=== PATIENT | female | born 1975 | race Caucasian/White ===

== ENCOUNTER 2017-05-12 22:06 | Emergency (ER) | payer SELFPAY ==
[~2017-05-12] VITALS: Ht 162.6 cm; Wt 90.7 kg
[~2017-05-12 22:06] MED LIST changes: -ALPR0.5T7; -CITA20TA7; -HYDR-3816; -NAPR500T4; -ONDA4TAB11 PO; -SULF1TAB35 PO
--- OUTSIDE RECORDS SUMMARY | 2017-05-12 22:11 | XMS REPORT ---
Author Author PATRICE ELIAS [facility] eClinicalWorks Address Unknown Phone Unavailable Care Team Providers Care Hot Mill Observer Name Role Phone PATRICE ELIAS CP Unavailable Allergies No Known Allergies Problems Problem Type Condition Code Onset Dates Condition Status Problem Obesity (BMI 30-39.9) E66.9 Active Problem Lumbago with sciatica, unspecified side M54.40 Active Problem Arthritis M19.90 Active Assessment Anxiety F41.9 Active Problem Anxiety F41.9 Active Assessment Lumbago with sciatica, unspecified side M54.40 Active Medications Medication Code System Code Instructions Start Date End Date Status Dosage Hydrocodone-Acetaminophen [facility] [address]-17 10-325 MG Orally every 4 hours 1 tablet as needed Alprazolam [facility] [address]-84 1 MG Orally 4 times a day 1 tablet Results No Known Results Summary Purpose eClinicalWorks Submission
--- OUTSIDE RECORDS SUMMARY | 2017-05-12 22:11 | XMS REPORT ---
Author Author PATRICE ELIAS Organization eClinicalWorks Address Unknown Phone Unavailable Care Team Providers Care Lecturer In Marketing Name Role Phone PATRICE ELIAS CP Unavailable Allergies, Adverse Reactions, Alerts Substance Reaction Event Type Penicillin V Potassium Info Not Available Drug Allergy codiene Info Not Available Non Drug Allergy Problems Problem Type Condition Code Onset Dates Condition Status Problem Obesity (BMI 30-39.9) E66.9 Active Problem Lumbago with sciatica, unspecified side M54.40 Active Problem Arthritis M19.90 Active Assessment Obesity (BMI 30-39.9) E66.9 Active Assessment Lumbago with sciatica, unspecified side M54.40 Active Problem Anxiety F41.9 Active Assessment Arthritis M19.90 Active Medications Medication Code System Code Instructions Start Date End Date Status Dosage Hydrocodone-Acetaminophen [facility] [address]-66 10-325 MG Orally every 4 hours 1 tablet as needed Contrave [facility] [address]-19 8-90 MG Orally as directed Mar 18, 2016Jun 1 AM 1 wk, 1 bid 1wk, 2AM 1PM 1wk, then 2bid Cyclobenzaprine HCl [facility] [address]-51 10 MG Orally Three times a day 1 tablet Diclofenac Sodium [facility] [address]-36 75 MG Orally Twice a day,pc Mar 18, 2016 1 Citalopram Hydrobromide [facility] [address]-87 20 MG Orally Once a day 1 tablet Alprazolam [facility] [address]-42 1 MG Orally 4 times a day 1 tablet Procedures Procedure Coding System Code Date Office Visit, Est Pt., Level 3 CPT-4 67551 Mar 18, 2016 Vital Signs Date/Time: Mar 18, 2016 Cardiac Monitoring Heart Rate 80 bpm Weight 228.3 lbs Height 64 in BMI 39.18 Index Blood Pressure Diastolic 84 mmHg Blood Pressure Systolic 128 mmHg Results No Known Results Summary Purpose eClinicalWorks Submission
--- OUTSIDE RECORDS SUMMARY | 2017-05-12 22:11 | XMS REPORT ---
Author Author PATRICE ELIAS [facility] Address [address] [place] [address] Care Team Providers Care Transport Specialist Name Role Phone PATRICE ELIAS Unavailable PROBLEMS Type Condition ICD9-CM Code [id number] Code Onset Dates Condition Status SNOMED Code Problem Lumbago with sciatica, unspecified side M54.40 Active 908597479 Problem Anxiety F41.9 Active 34997450 Assessment Lumbago with sciatica, unspecified side M54.40 Dec, Active 834632585 Assessment Other chronic pain G89.29 Dec, Active 44630719 ALLERGIES Substance Reaction Event Type Date Status Penicillin V Potassium Unknown Drug Allergy Dec, Active codiene Unknown Non Drug Allergy Dec, Active SOCIAL HISTORY No smoking Hx information available PLAN OF CARE VITAL SIGNS Height 64 in 2016-01-11 Weight 231.9 lbs 2016-01-11 Heart Rate 84 bpm 2016-01-11 Respiratory Rate 18 2016-01-11 BMI 39.80 kg/m2 2016-01-11 Blood pressure systolic 128 mmHg 2016-01-11 Blood pressure diastolic 94 mmHg 2016-01-11 MEDICATIONS Medication Instructions Dosage Frequency Start Date End Date Duration Status Alprazolam 1 MG Orally 4 times a day 6h Active Hydrocodone-Acetaminophen 10-325 MG Orally every 4 hours 1 tablet as needed 4h Active Citalopram Hydrobromide 20 MG Orally Once a day 1 tablet 24h Active Cyclobenzaprine HCl 10 MG Orally Three times a day 1 tablet 8h Active RESULTS No Results PROCEDURES Procedure Date Ordered Related Diagnosis Body Site Office Visit, Est Pt., Level 3 January 11, 2016 IMMUNIZATIONS No Known Immunizations
--- OUTSIDE RECORDS SUMMARY | 2017-05-12 22:11 | XMS REPORT ---
Author Author PATRICE ELIAS [facility] Address [address] [place] [address] Care Team Providers Care Vat House Supervisor Name Role Phone PATRICE ELIAS Unavailable PROBLEMS Type Condition ICD9-CM Code [id number] Code Onset Dates Condition Status SNOMED Code Problem Arthritis M19.90 Active 5172259 Problem Obesity (BMI 30-39.9) E66.9 Active 076090363 Problem Lumbago with sciatica, unspecified side M54.40 Active 702779134 Problem Anxiety F41.9 Active 33003113 ALLERGIES No Known Allergies SOCIAL HISTORY No smoking Hx information available PLAN OF CARE VITAL SIGNS MEDICATIONS Medication Instructions Dosage Frequency Start Date End Date Duration Status Hydrocodone-Acetaminophen 10-325 MG Orally every 4 hours 1 tablet as needed 4h Active Alprazolam 1 MG Orally 4 times a day 1 tablet 6h Active RESULTS No Results PROCEDURES No Known procedures IMMUNIZATIONS No Known Immunizations
--- OUTSIDE RECORDS SUMMARY | 2017-05-12 22:12 | XMS REPORT ---
Author Author PATRICE ELIAS [facility] Address [address] [place] [address] Care Team Providers Care Biological Science Technician Name Role Phone PATRICE ELIAS Unavailable PROBLEMS Type Condition ICD9-CM Code [id number] Code Onset Dates Condition Status SNOMED Code Problem Lumbago with sciatica, unspecified side M54.40 Active 539770419 Problem Anxiety F41.9 Active 70351309 Problem Family history of heart disease Z82.49 Active 796778625 Problem Seasonal allergic rhinitis, unspecified allergic rhinitis trigger J30.2 Active 352982627 Problem Arthritis M19.90 Active 8443956 Problem Obesity (BMI 30-39.9) E66.9 Active 830766739 Problem 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
--- OUTSIDE RECORDS SUMMARY | 2017-05-12 22:12 | XMS REPORT ---
Author Author NICOLETTE MCKNIGHT [facility] eClinicalWorks Address Unknown Phone Unavailable Care Team Providers Care Import Clerk Name Role Phone NICOLETTE MCKNIGHT CP Unavailable Allergies, Adverse Reactions, Alerts Substance Reaction Event Type Penicillin V Potassium Info Not Available Drug Allergy codiene Info Not Available Non Drug Allergy Problems Problem Type Condition Code Onset Dates Condition Status Problem Anxiety F41.9 Active Assessment Rib pain on left side R07.81 Active Problem Lumbago with sciatica, unspecified side M54.40 Active Medications Medication Code System Code Instructions Start Date End Date Status Dosage Citalopram Hydrobromide [facility] [address]-79 20 MG Orally Once a day 1 tablet Hydrocodone-Acetaminophen [facility] [address]-82 10-325 MG Orally every 4 hours 1 tablet as needed Alprazolam [facility] [address]-92 1 MG Orally 4 times a day 1 tablet Cyclobenzaprine HCl [facility] [address]-93 10 MG Orally Three times a day 1 tablet Procedures Procedure Coding System Code Date Office Visit, Est Pt., Level 3 CPT-4 75662 Feb 06, 2016 Vital Signs Date/Time: Feb 06, 2016 Cardiac Monitoring Heart Rate 76 bpm Weight 229.4 lbs Height 64 in BMI 39.37 Index Blood Pressure Diastolic 82 mmHg Blood Pressure Systolic 130 mmHg Results No Known Results Summary Purpose eClinicalWorks Submission
--- OUTSIDE RECORDS SUMMARY | 2017-05-12 22:12 | XMS REPORT ---
Author Author HAYLIE HERNANDEZ [facility] Address [address] [place] [address] Care Team Providers Care Ski Molder Name Role Phone HAYLIE HERNANDEZ Unavailable PROBLEMS Type Condition ICD9-CM Code LIM74-PA Code Onset Dates Condition Status SNOMED Code Problem Arthritis M19.90 Active 4170370 Problem Obesity (BMI 30-39.9) E66.9 Active 362758887 Assessment Laceration of finger of right hand, initial encounter S61.219A Feb, Active 229539030 Problem Lumbago with sciatica, unspecified side M54.40 Active 498742115 Problem Anxiety F41.9 Active 73863115 ALLERGIES Substance Reaction Event Type Date Status Penicillin V Potassium Unknown Drug Allergy Feb, Active codiene Unknown Non Drug Allergy Feb, Active SOCIAL HISTORY No smoking Hx information available PLAN OF CARE VITAL SIGNS Height 64 in 2016-03-02 Weight 226.0 lbs 2016-03-02 Heart Rate 78 bpm 2016-03-02 Respiratory Rate 18 2016-03-02 BMI 38.79 kg/m2 2016-03-02 Blood pressure systolic 128 mmHg 2016-03-02 Blood pressure diastolic 86 mmHg 2016-03-02 MEDICATIONS Medication Instructions Dosage Frequency Start Date End Date Duration Status Hydrocodone-Acetaminophen 10-325 MG Orally every 4 hours 1 tablet as needed 4h Active Cyclobenzaprine HCl 10 MG Orally Three times a day 1 tablet 8h Active Citalopram Hydrobromide 20 MG Orally Once a day 1 tablet 24h Active Alprazolam 1 MG Orally 4 times a day 1 tablet 6h Active RESULTS No Results PROCEDURES Procedure Date Ordered Related Diagnosis Body Site Office Visit, Est Pt., Level 3 Mar 02, 2016 IMMUNIZATIONS No Known Immunizations
--- OUTSIDE RECORDS SUMMARY | 2017-05-12 22:12 | XMS REPORT ---
Author Author PATRICE ELIAS [facility] eClinicalWorks Address Unknown Phone Unavailable Care Team Providers Care Consumer Recruiter Name Role Phone PATRICE ELIAS CP Unavailable Allergies No Known Allergies Problems Problem Type Condition Code Onset Dates Condition Status Problem Anxiety F41.9 Active Problem Lumbago with sciatica, unspecified side M54.40 Active Medications Medication Code System Code Instructions Start Date End Date Status Dosage Alprazolam [facility] [address]-37 1 MG Orally 4 times a day 1 tablet Hydrocodone-Acetaminophen [facility] [address]-19 10-325 MG Orally every 4 hours 1 tablet as needed Results No Known Results Summary Purpose eClinicalWorks Submission
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
--- OUTSIDE RECORDS SUMMARY | 2017-05-12 22:12 | XMS REPORT ---
Author Author PATRICE ELIAS Organization eClinicalWorks Address Unknown Phone Unavailable Care Team Providers Care Quality Control Director Name Role Phone PATRICE ELIAS CP Unavailable Allergies No Known Allergies Problems Problem Type Condition Code Onset Dates Condition Status Problem Obesity (BMI 30-39.9) E66.9 Active Problem Lumbago with sciatica, unspecified side M54.40 Active Problem Arthritis M19.90 Active Problem Anxiety F41.9 Active Medications Medication Code System Code Instructions Start Date End Date Status Dosage Hydrocodone-Acetaminophen [facility] [address]-53 10-325 MG Orally every 4 hours 1 tablet as needed Results No Known Results Summary Purpose eClinicalWorks Submission
--- OUTSIDE RECORDS SUMMARY | 2017-05-12 22:12 | XMS REPORT ---
Author Author PATRICE ELIAS Organization eClinicalWorks Address Unknown Phone Unavailable Care Team Providers Care Bagger Meat Name Role Phone PATRICE ELIAS CP Unavailable Allergies No Known Allergies Problems Problem Type Condition Code Onset Dates Condition Status Problem Obesity (BMI 30-39.9) E66.9 Active Problem Lumbago with sciatica, unspecified side M54.40 Active Problem Arthritis M19.90 Active Problem Anxiety F41.9 Active Medications Medication Code System Code Instructions Start Date End Date Status Dosage Citalopram Hydrobromide [facility] [address]-50 20 mg Orally Once a day 1 tablet Alprazolam [facility] [address]-81 1 MG Orally 4 times a day 1 tablet Results No Known Results Summary Purpose eClinicalWorks Submission
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
--- OUTSIDE RECORDS SUMMARY | 2017-05-12 22:12 | XMS REPORT ---
Author Author PATRICE ELIAS [facility] Address [address] [place] [address] Care Team Providers Care Paint Maker Name Role Phone PATRICE ELIAS Unavailable PROBLEMS Type Condition ICD9-CM Code [id number] Code Onset Dates Condition Status SNOMED Code Problem Lumbago with sciatica, unspecified side M54.40 Active 517178676 Problem Anxiety F41.9 Active 78894315 Problem Family history of heart disease Z82.49 Active 757713227 Problem Seasonal allergic rhinitis, unspecified allergic rhinitis trigger J30.2 Active 270638116 Problem Arthritis M19.90 Active 5114436 Problem Obesity (BMI 30-39.9) E66.9 Active 161456788 Problem Functional 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
--- OUTSIDE RECORDS SUMMARY | 2017-05-12 22:12 | XMS REPORT ---
Author Author PATRICE ELIAS [facility] eClinicalWorks Address Unknown Phone Unavailable Care Team Providers Care Section Chief Name Role Phone PATRICE ELIAS CP Unavailable Allergies No Known Allergies Problems Problem Type Condition Code Onset Dates Condition Status Problem Anxiety F41.9 Active Problem Lumbago with sciatica, unspecified side M54.40 Active Medications Medication Code System Code Instructions Start Date End Date Status Dosage Alprazolam [facility] [address]-30 1 MG Orally 4 times a day 1 tablet Hydrocodone-Acetaminophen [facility] [address]-03 10-325 MG Orally every 4 hours 1 tablet as needed Results No Known Results Summary Purpose eClinicalWorks Submission
--- OUTSIDE RECORDS SUMMARY | 2017-05-12 22:12 | XMS REPORT ---
Author Author JAD FONTENOT Organization [facility] Address [address] [place] [address] Care Team Providers Care Rip And Groove Machine Operator Name Role Phone JAD FONTENOT Unavailable PROBLEMS Type Condition ICD9-CM Code EWS03-BV Code Onset Dates Condition Status SNOMED Code Problem Lumbago with sciatica, unspecified side M54.40 Active 690752682 Problem Anxiety F41.9 Active 79541875 Problem Family history of heart disease Z82.49 Active 232409631 Problem Seasonal allergic rhinitis, unspecified allergic rhinitis trigger J30.2 Active 251436298 Problem Arthritis M19.90 Active 0374746 Problem Obesity (BMI 30-39.9) E66.9 Active 224574305 Problem Functional 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
[2017-05-12] MEDS ORDERED: ALPR0.5T7 (22:16)
[2017-05-12] MEDS ORDERED: HYDR-3816 (22:16)
[2017-05-12] MEDS ORDERED: CITA20TA7 (22:16)
[2017-05-12] MEDS ORDERED: NAPR500T4 (22:16)
[2017-05-12] MEDS ORDERED: NS IV 1000 ML 1,000 ML IV ONE (22:17)
--- NOTE | 2017-05-12 22:25 | ED Abdominal Pain ---
General Chief Complaint: Abdominal/GI Problems Stated Complaint: L SIDE PAIN Source of Information: Patient, Family (mother and daughter) Exam Limitations: No Limitations History of Present Illness Time Seen By Provider: 22:13 Initial Comments Patient presents to ER by private conveyance with chief complaint that she is having now going on 2 days of left upper quadrant abdominal pain that radiates all over her abdomen. It is made worse by being touched, movement, nausea and vomiting. She gets nauseated when the pain gets worse or after she tries to eat anything. She has had loose stools ever since she had her gallbladder removed and this is not changed. She sees no blood in her vomit or diarrhea. She also has had her appendix out. She does not know she has a history of diverticulosis. No recent trauma to the abdomen. No history of recent travel outside the [place]. She is also had a on her abdomen. She says she is perimenopausal very irregular periods and hot flashes. She denies any fevers, cough, shortness of breath, chest pain, coronary artery disease by history. She takes citalopram and an NSAID as needed. She quit smoking years ago does not drink alcohol has no history of pancreatitis and no history of hypercholesterolemia. She says she feels a knot in her left upper quadrant started yesterday and that is the source of her pain. She went to her clinic at [facility] this evening to be worked up for this pain and says that took 5 x-rays of her abdomen so they saw spot in her left upper abdomen that they did not like the looks of. They sent her from the clinic to the ER to be evaluated. We did not receive any other contact or paperwork from the clinic revealing what workup has been done tonight. Allergies and Home Medications Allergies Coded Allergies: Codeine (Unverified Allergy, Mild, 12/10/08) Penicillins (Unverified Allergy, Mild, 12/10/08) ciprofloxacin (Unverified Allergy, Mild, 12/10/08) Home Medications Alprazolam 0.5 Mg Tablet, (Reported) Citalopram Hydrobromide 20 Mg Tablet, (Reported) Hydrocodone/Acetaminophen 1 Each Tablet, (Reported) Naproxen 500 Mg Tablet, (Reported) Review of Systems Constitutional: No chills, No diaphoresis, No dizziness, No fever, malaise Respiratory: Denies Cough, Denies Shortness of Air Cardiovascular: Denies Chest Pain, Denies Lightheadedness, Denies Palpitations , Denies Syncope Gastrointestinal: See HPI, Abdominal Pain, Denies Constipated, Diarrhea ( chronic), Denies Difficulty Swallowing, Nausea, Poor Appetite, Poor Fluid Intake , Denies Rectal Bleeding, Vomiting Genitourinary: Denies Burning, Denies Discharge, Denies Drainage Musculoskeletal: back pain (chronic), No joint pain Skin: No pruritus, No rash Past Uyltngn-Jcktzq-Tdirym Hx Patient Social History Alcohol Use: Denies Use Recreational Drug Use: No Smoking Status: Former Smoker Type Used: Cigarettes 2nd Hand Smoke Exposure: Yes Recent Foreign Travel: No Contact w/Someone Who Travel: No Recent Hopitalizations: No Immunizations Up To Date Tetanus Booster (TDap): Unknown Date of Pneumonia Vaccine: Mar 16, 2012 Seasonal Allergies Seasonal Allergies: Yes Surgeries History of Surgeries: Yes (EGD) Surgeries: Appendectomy, Section, Gallbladder Respiratory History of Respiratory Disorde: No Respiratory Disorders: Pneumonia Cardiovascular History of Cardiac Disorders: No Neurological History of Neurological Disord: No Genitourinary History of Genitourinary Disor: Yes Genitourinary Disorders: UTI-Chronic Gastrointestinal History of Gastrointestinal Di: Yes Gastrointestinal Disorders: Gastroesophageal Reflux, Ulcer Musculoskeletal History of Musculoskeletal Dis: No Musculoskeletal Disorders: Chronic Back Pain Endocrine History of Endocrine Disorders: No HEENT History of HEENT Disorders: No Cancer History of Cancer: No Psychosocial History of Psychiatric Problem: Yes Behavioral Health Disorders: Anxiety, Depression Integumentary History of Skin or Integumenta: No Blood Transfusions History of Blood Disorders: No Physical Exam Vital Signs VS - Last 72 Hours, by Label 05/12/17 05/12/17 05/12/17 22:16 22:28 23:42 Temp 99.3 99.3 98.1 Pulse 92 76 Resp 18 16 B/P (MAP) 146/101 133/71 Pulse Ox 98 98 O2 Delivery Room Air Room Air Capillary Refill : General Appearance: WD/WN, moderate distress HEENT: PERRL/EOMI, pharynx normal (oromucosa mildly dry.) Neck: full range of motion, normal inspection Respiratory: lungs clear, normal breath sounds, no respiratory distress, no accessory muscle use Cardiovascular: normal peripheral pulses, regular rate, rhythm, no edema Peripheral Pulses: 2+ Dorsalis Pedis (R), 2+ Left Dors-Pedis (L), 2+ Radial Pulses (R), 2+ Radial Pulses (L) Gastrointestinal: abnormal bowel sounds (hyperactive), guarding, No rebound, tenderness (left upper quadrant without splenomegaly. No palpable mass. No bruits heard.), other (no mesenteric signs.) Extremities: no pedal edema, normal capillary refill Back: normal inspection, no CVA tenderness, no vertebral tenderness Pelvic: normal external exam Neurologic/Psychiatric: alert, normal mood/affect, oriented x 3 Skin: normal color, warm/dry Progress/Results/Core Measures Results/Orders Lab Results Laboratory Tests Test 05/12/17 22:20 05/12/17 22:25 Range/Units Urine Color YELLOW Urine Clarity CLEAR Urine pH 7 5-9 Urine Specific [place] 1.005 L 1.016-1.022 Urine Protein NEGATIVE NEGATIVE Urine Glucose (UA) NEGATIVE NEGATIVE Urine Ketones NEGATIVE NEGATIVE Urine Nitrite NEGATIVE NEGATIVE Urine Bilirubin NEGATIVE NEGATIVE Urine Urobilinogen NORMAL NORMAL MG/DL Urine Leukocyte Esterase 2+ H NEGATIVE Urine RBC (Auto) 1+ H NEGATIVE Urine RBC 0-2 /HPF Urine WBC 10-25 H /HPF Urine Squamous Epithelial Cells 10-25 H /HPF Urine Crystals NONE /LPF Urine Bacteria LARGE H /HPF Urine Casts NONE /LPF Urine Mucus NEGATIVE /LPF Urine Culture Indicated YES Urine Test NEGATIVE NEGATIVE Urine Opiates Screen NEGATIVE NEGATIVE Urine Oxycodone Screen NEGATIVE NEGATIVE Urine Methadone Screen NEGATIVE NEGATIVE Urine Propoxyphene Screen NEGATIVE NEGATIVE Urine Barbiturates Screen NEGATIVE NEGATIVE Ur Tricyclic Antidepressants Screen NEGATIVE NEGATIVE Urine Phencyclidine Screen NEGATIVE NEGATIVE Urine Amphetamines Screen NEGATIVE NEGATIVE Urine Methamphetamines Screen NEGATIVE NEGATIVE Urine Benzodiazepines Screen NEGATIVE NEGATIVE Urine Cocaine Screen NEGATIVE NEGATIVE Urine Cannabinoids Screen NEGATIVE NEGATIVE White Blood Count 6.0 4.3-11.0 10^3/uL Red Blood Count 4.28 L 4.35-5.85 10^6/uL Hemoglobin 12.7 11.5-16.0 G/DL Hematocrit 39 35-52 % Mean Corpuscular Volume 90 80-99 FL Mean Corpuscular Hemoglobin 30 25-34 PG Mean Corpuscular Hemoglobin Concent 33 32-36 G/DL Red Cell Distribution Width 12.7 10.0-14.5 % Platelet Count 337 130-400 10^3/uL Mean Platelet Volume 10.9 H 7.4-10.4 FL Neutrophils (%) (Auto) 58 42-75 % Lymphocytes (%) (Auto) 31 12-44 % Monocytes (%) (Auto) 10 0-12 % Eosinophils (%) (Auto) 1 0-10 % Basophils (%) (Auto) 0 0-10 % Neutrophils # (Auto) 3.5 1.8-7.8 X 10^3 Lymphocytes # (Auto) 1.8 1.0-4.0 X 10^3 Monocytes # (Auto) 0.6 0.0-1.0 X 10^3 Eosinophils # (Auto) 0.1 0.0-0.3 10^3/uL Basophils # (Auto) 0.0 0.0-0.1 10^3/uL Sodium Level 139 135-145 MMOL/L Potassium Level 3.5 L 3.6-5.0 MMOL/L Chloride Level 105 98-107 MMOL/L Carbon Dioxide Level 25 21-32 MMOL/L Anion Gap 9 5-14 MMOL/L Blood Urea Nitrogen 9 7-18 MG/DL Creatinine 0.71 0.60-1.30 MG/DL Estimat Glomerular Filtration Rate > 60 BUN/Creatinine Ratio 13 Glucose Level 97 70-105 MG/DL Calcium Level 8.6 8.5-10.1 MG/DL Total Bilirubin 0.2 0.1-1.0 MG/DL Aspartate Amino Transf (AST/SGOT) 35 H 5-34 U/L Alanine Aminotransferase (ALT/SGPT) 51 0-55 U/L Alkaline Phosphatase 121 40-136 U/L Total Protein 6.9 6.4-8.2 GM/DL Albumin 4.0 3.2-4.5 GM/DL Lipase 11 8-78 U/L My Orders Orders - CRICKET PRETTY Ct Abdomen/Pelvis W (05/12/17 22:17) Saline Lock/Iv-Start (05/12/17 22:17) Cbc With Automated Diff (05/12/17 22:17) Comprehensive Metabolic Panel (05/12/17 22:17) Drug Screen Stat (Urine) (05/12/17 22:17) Hcg,Qualitative Urine (05/12/17 22:17) Lipase (05/12/17 22:17) Ua Culture If Indicated (05/12/17 22:17) Ns Iv 1000 Ml (Sodium Chloride 0.9%) (05/12/17 22:17) Ketorolac Injection (Toradol Injection) (05/12/17 22:30) Iohexol Injection (Omnipaque 350 Mg/Ml 1 (05/12/17 22:45) Ns (Ivpb) (Sodium Chloride 0.9% Ivpb Bag (05/12/17 22:45) Urine Culture (05/12/17 22:20) Fentanyl Injection (Sublimaze Injection (05/13/17 00:00) Medications Given in ED Current Medications Medications Dose Ordered Sig/Sandro Route Start Time Stop Time Status Last Admin Dose Admin Fentanyl Citrate 50 mcg ONCE ONCE IVP 05/13/17 00:00 05/13/17 00:02 DC 05/12/17 23:55 50 MCG Iohexol 100 ml ONCE ONCE IV 05/12/17 22:45 05/12/17 22:46 UNV 05/12/17 22:41 100 ML Ketorolac Tromethamine 15 mg ONCE ONCE IVP 05/12/17 22:30 05/12/17 22:31 DC 05/12/17 22:28 15 MG Sodium Chloride 100 ml ONCE ONCE IV 05/12/17 22:45 05/12/17 22:46 UNV 05/12/17 22:41 80 ML Sodium Chloride 1,000 ml @ 0 mls/hr Q0M ONCE IV 05/12/17 22:17 05/12/17 22:20 DC 05/12/17 22:28 0 MLS/HR Vital Signs/I&O Vital Sign - Last 12Hours 05/12/17 05/12/17 05/12/17 22:16 22:28 23:42 Temp 99.3 99.3 98.1 Pulse 92 76 Resp 18 16 B/P (MAP) 146/101 133/71 Pulse Ox 98 98 O2 Delivery Room Air Room Air Progress Note #1: Time: 22:23 Progress Note Colitis versus diverticulitis versus pancreatitis versus abdominal wall pain versus other. We'll give her some fluids get a CT scan with contrast and some Toradol for pain. We'll check a white count as well as CMP. Progress Note #2: Time: 23:14 Progress Note Urinalysis is contaminated with multiple squamous epithelials making the leuko- urea and bacteria likely to be from contamination. If we do not find a better explanation for her symptoms we will empirically treat her. A negative lipase makes pancreatitis unlikely. CT scan makes bacterial colitis/ peritonitis less likely. Progress Note #3: Time: 00:14 Progress Note Patient's pain distally improved with fentanyl. She is not having any nausea however she hasn't vomited since being here per mother. There is no vomiting in the vomit CAT scan. There is nothing acute, inpatient, surgical seen on lab, examination or imaging. We will allow her to go home and follow up your primary care physician outpatient this week. Diagnostic Imaging Diagonstic Imaging: CT Plain Films/CT/US/NM/MRI: abdomen, pelvis (with contrast) Comments Unremarkable: Without diverticulosis or diverticulitis. No enlarged or irregular shape spleen. Pancreas is normal appearing. No inflammation, free air , free fluid seen. No radiographic apparent mass. Gallbladder and appendix are surgically missing. Renal's, ureters, bladder have contrast in them without any extravasation, obstruction or tumor. Stat read: Impression: No acute findings. Reviewed: Reviewed [place] Study, Reviewed by Me Departure Impression Impression: Primary Impression: Abdominal wall pain Additional Impression: Gastroenteritis and colitis, viral Disposition: 01 HOME, SELF-CARE Condition: Improved Departure-Patient Inst. Decision time for Depature: 00:15 Referrals: [facility] (PCP/Family) Primary Care Physician Patient Instructions: Viral Gastroenteritis, Adult (DC) Add. Discharge Instructions: Drink plenty of fluids and eat a bland liquid diet. We will start you on 3 days of antibiotics for the potential UTI. Eat yogurt with active culture or take probiotics twice a day while on antibiotics. Follow-up with your primary care physician if you're not feeling better and 2-3 days. If you're having nausea take one tablet of Zofran under the tongue every 6 hours as needed. All discharge instructions reviewed with patient and/or family. Voiced understanding. Scripts Ondansetron (Ondansetron Odt) 4 Mg Tab.rapdis 4 MG PO Q6H Y for NAUSEA/VOMITING, #8 TAB 0 Refills Prov: CRICKET PRETTY 05/13/17 Copy Copies To 1: BALAJI CRABTREE DO CRICKET PRETTY May 12, 2017 22:25
[2017-05-12] MEDS ORDERED: KETOROLAC 30 MG/ML VIAL IVP ONE (22:30)
[2017-05-12] MEDS ORDERED: IOHEXOL 350 MG/ML 100 ML (OMNIPAQUE 350) VIAL IV ONE (22:45)
[2017-05-12] MEDS ORDERED: NS 100 ML (IVPB) BAG IV ONE (22:45)
[2017-05-12 22:59] LABS: BASOPHILS % (AUTO) 0 % (0-10); EOSINOPHILS # (AUTO) 0.1 10^3/uL (0.0-0.3); EOSINOPHILS % (AUTO) 1 % (0-10); LYMPHOCYTES # (AUTO) 1.8 X 10^3 (1.0-4.0); LYMPHOCYTES % (AUTO) 31 % (12-44); MEAN CORPUSCULAR HEMOGLOBIN 30 PG (25-34); MEAN CORPUSCULAR HGB CONC 33 G/DL (32-36); MEAN CORPUSCULAR VOLUME 90 FL (80-99); MEAN PLATELET VOLUME 10.9 FL (7.4-10.4); MONOCYTES # (AUTO) 0.6 X 10^3 (0.0-1.0); MONOCYTES % (AUTO) 10 % (0-12); NEUTROPHILS # (AUTO) 3.5 X 10^3 (1.8-7.8); NEUTROPHILS % (AUTO) 58 % (42-75); PLATELET COUNT 337 10^3/uL (130-400); RED BLOOD COUNT 4.28 10^6/uL (4.35-5.85); RED CELL DISTRIBUTION WIDTH 12.7 % (10.0-14.5)
[2017-05-12 23:00] LABS: BILIRUBIN,URINE NEGATIVE (NEGATIVE); KETONES,URINE NEGATIVE (NEGATIVE); LEUKOCYTE ESTERASE ,URINE 2+ (NEGATIVE); NITRITE,URINE NEGATIVE (NEGATIVE); PH,URINE 7 (5-9); PROTEIN,URINE NEGATIVE (NEGATIVE); UROBILINOGEN,URINE NORMAL (NORMAL)
[2017-05-12 23:21] LABS: ALANINE AMINOTRANSFERASE 51 U/L (0-55); ANION GAP 9 MMOL/L (5-14); ASPARTATE AMINO TRANSFERASE 35 U/L (5-34); BILIRUBIN,TOTAL 0.2 MG/DL (0.1-1.0); BLOOD UREA NITROGEN 9 MG/DL (7-18); BUN/CREATININE RATIO 13; CALCIUM 8.6 MG/DL (8.5-10.1); CARBON DIOXIDE 25 MMOL/L (21-32); CHLORIDE 105 MMOL/L (98-107); CREATININE SERUM 0.71 MG/DL (0.60-1.30); GFR ESTIMATED > 60; GLUCOSE 97 MG/DL (70-105); LIPASE 11 U/L (8-78); POTASSIUM 3.5 MMOL/L (3.6-5.0); SODIUM 139 MMOL/L (135-145); TOTAL PROTEIN 6.9 GM/DL (6.4-8.2)
[2017-05-12 23:42] VITALS: BP 133/71
[2017-05-13] MEDS ORDERED: fentaNYL INJECTION 100 MCG/2 ML AMP IVP ONE
[2017-05-13] MEDS ORDERED: ONDA4TAB11 PO (00:17)
[2017-05-13] MEDS ORDERED: SULF1TAB35 PO (00:23)
[2017-05-13 00:25] VITALS: BP 133/71
--- NOTE | 2017-05-13 07:19 | Diagnostic Imaging Report ---
PROCEDURE: CT abdomen and pelvis with contrast. TECHNIQUE: Multiple contiguous axial images were obtained through the abdomen and pelvis after administration of intravenous contrast. INDICATION: Left upper quadrant abdominal pain. Nausea and vomiting. COMPARISON: CT abdomen and pelvis with IV contrast 09/04/2012. FINDINGS: Lung bases are clear. Cholecystectomy. The liver, pancreas, spleen, adrenals, kidneys, collecting systems and partially opacified bladder are negative. The reproductive structures are grossly unremarkable on this nondedicated exam. Reported appendectomy. No free intraperitoneal air or fluid. No lymphadenopathy. No evidence of bowel obstruction. No acute osseous findings. IMPRESSION: No acute CT findings in the abdomen or pelvis. Dictated by: Dictated on workstation # [id number]
== END 2017-05-13 00:19 | disposition home or self-care (01) ==
LOC: EDUNIT# 22:06 → ER 22:08
DX: A08.4 Viral intestinal infection, unspecified (principal); K21.9 Gastro-esophageal reflux disease without esophagitis; F41.9 Anxiety disorder, unspecified; F32.9 Major depressive disorder, single episode, unspecified; Z90.49 Acquired absence of other specified parts of digestive tract; Z87.19 Personal history of other diseases of the digestive system; Z87.59 Personal history of other complications of pregnancy, childbirth and the puerperium; Z87.891 Personal history of nicotine dependence; Z87.01 Personal history of pneumonia (recurrent); Z87.440 Personal history of urinary (tract) infections
CPT/HCPCS: 36415; 74177; 80053; 80306; 81000; 83690; 84703; 85025; 87088; 96361; 96374; 96375

== ENCOUNTER → 2017-05-12 | Outpatient (CLI) | payer SELFPAY ==
[~2017-05-12] MED LIST: ALBU2.5V52 INH; ALPR.5T PO; ALPR0.5T22; ALPR0.5T7; AMIT10TA6; AZIT-21; AZIT-21 PO; BENZ-13 PO; BENZ100C18; CEPH250T; CFR250T PO; CITA20TA7; CYCL10TA9 PO; DIAZ10TA; DICL50TA6 PO; ESCT10T PO; HYDR-3816; HYDR-623 PO; MELO15TA14; NAPR500T4; NAPR550T PO; ONDA4TAB11 PO; ONDAN4ODT PO; OXYC-12 PO; PNT40TEC PO; PRD20T PO; SERT50TA; SULF1TAB35 PO; TRAM-21 PO; TRM50T PO; TRZ100T PO; ZOLP10TA; [UNRECOGNIZED DRUG - REMARK]
== END ==
LOC: RAD 21:36
PROVIDERS: ATTEND Nurse Practitioner Family
DX: R10.12 Left upper quadrant pain (principal); R11.2 Nausea with vomiting, unspecified

== ENCOUNTER 2020-08-23 05:34 | Outpatient (CLI) | payer OTHER ==
[~2020-08-23] VITALS: Ht 162.6 cm; Wt 113.6 kg
[~2020-08-23 05:34] MED LIST changes: +ALPR0.5T7; +CITA20TA9; +HYDR-34; +NAPR-915; +ONDA4TAB11 PO; +SULF1TAB35 PO
[2020-08-23] MEDS ORDERED: ONDN4T PO (11:03)
[2020-08-23] MEDS ORDERED: DULO30CA3 PO (11:03)
[2020-08-23] MEDS ORDERED: CYCL10TA9 PO (11:03)
[2020-08-23] MEDS ORDERED: ATOR10TA PO (11:03)
[2020-08-23] MEDS ORDERED: OMEP20TA33 PO (11:03)
[2020-08-28] MEDS ORDERED: OXYC-200 PO (09:12)
[2020-08-28] MEDS ORDERED: IBUP-1773 PO (09:12)
== END 2020-08-23 11:07 | disposition home or self-care (01) ==
LOC: PREOP 05:34 → EDSTATUS 11:00 → PREOP 11:07
PROVIDERS: ATTEND Obstetrics & Gynecology
DX: Z01.818 Encounter for other preprocedural examination (principal)

== ENCOUNTER 2020-08-28 08:28 | Day surgery (SDC) | payer OTHER ==
[~2020-08-28] VITALS: Ht 162.6 cm; Wt 113.6 kg
[2020-08-28] VITALS (10 sets, daily range): BP systolic 115–160; BP diastolic 74–96
[~2020-08-28 08:28] MED LIST changes: +ATOR10TA PO; +DULO30CA3 PO; +OMEP20TA33 PO; +ONDN4T PO
[2020-08-28] MEDS ORDERED: BUPIVACAINE 0.25% 30 ML (SENSORCAINE) VIAL ONE (08:55)
[2020-08-28] MEDS: LACTATED RINGERS 1,000 ML IV PRN ×2 (08:59→11:17)
[2020-08-28] MEDS ORDERED: MIDAZOLAM 2 MG/2 ML (VERSED) VIAL ONE (09:05)
[2020-08-28] MEDS ORDERED: ONDANSETRON 4 MG/2 ML (SDV) Z0FRAN ONE (09:05)
[2020-08-28] MEDS ORDERED: fentaNYL INJ 100 MCG/2 ML AMP ONE (09:05)
[2020-08-28] MEDS ORDERED: SEVOFLURANE (ULTANE) 15 ML INHAL SOLN ONE (09:05)
[2020-08-28] MEDS ORDERED: LIDOCAINE PF 2% 5 ML (XYLOCAINE) VIAL ONE (09:05)
[2020-08-28] MEDS ORDERED: proPOfol 200 MG/20 ML (DIPRIVAN) VIAL IV ONE (09:05)
[2020-08-28] MEDS ORDERED: IBUP-1773 PO (09:12)
[2020-08-28] MEDS ORDERED: OXYC-200 PO (09:12)
--- NOTE | 2020-08-28 09:13 | Discharge Inst-Women's Service ---
Discharge Inst-Women's Serv Depart Medication/Instructions New, Converted or Re-Newed RX: RX on Chart Problems Reviewed?: Yes Consults/Follow Up Additional Follow Up: Yes Orders/Referrals Dr. He in 1-2 weeks Activity Activity: Activity as Tolerated Driving Instructions: No Driving for 1 Week NO SMOKING: NO SMOKING Nothing Inside Vagina: No Douching, No [place], No Tampons Diet Discharge Diet: No Restrictions Symptoms to Report to : Bleeding Excessive, Pain Increased, Fever Over 101 Degrees F, Vaginal Bleeding Increase, Questions/Concerns For Any Problems or Questions: Contact Your Physician ZEENAT HE DO Aug 28, 2020 09:13
[2020-08-28] MEDS ORDERED: oxyCODONE/APAP 5/325MG (PERCOCET 5) TABLET PO PRN (09:15)
[2020-08-28] MEDS ORDERED: ONDANSETRON 4 MG/2 ML (SDV) Z0FRAN IVP PRN (09:15)
[2020-08-28] MEDS ORDERED: D5 LR IV SOLUTION 1,000 ML IV SCH (09:15)
[2020-08-28] MEDS ORDERED: KETOROLAC 30 MG/ML VIAL IVP ONE (09:15)
[2020-08-28 09:18] LABS: BASOPHILS # (AUTO) 0.1 10^3/uL (0.0-0.1); BASOPHILS % (AUTO) 1 % (0-10); EOSINOPHILS # (AUTO) 0.1 10^3/uL (0.0-0.3); EOSINOPHILS % (AUTO) 2 % (0-10); HEMATOCRIT 38 % (35-52); LYMPHOCYTES # (AUTO) 1.9 10^3/uL (1.0-4.0); LYMPHOCYTES % (AUTO) 26 % (12-44); MEAN CORPUSCULAR HEMOGLOBIN 29 pg (25-34); MEAN CORPUSCULAR HGB CONC 32 g/dL (32-36); MEAN CORPUSCULAR VOLUME 90 fL (80-99); MEAN PLATELET VOLUME 10.2 fL (9.0-12.2); MONOCYTES # (AUTO) 0.5 10^3/uL (0.0-1.0); MONOCYTES % (AUTO) 6 % (0-12); NEUTROPHILS # (AUTO) 4.8 10^3/uL (1.8-7.8); NEUTROPHILS % (AUTO) 65 % (42-75); PLATELET COUNT 427 10^3/uL (130-400); WHITE BLOOD COUNT 7.3 10^3/uL (4.3-11.0)
[2020-08-28] MEDS ORDERED: MEPERIDINE (DEMEROL) INJ 50 MG/ML IVP ONE (10:30)
[2020-08-28] MEDS ORDERED: fentaNYL INJ 100 MCG/2 ML AMP IVP ONE (10:30)
[2020-08-28] MEDS: ONDANSETRON 4 MG/2 ML (SDV) Z0FRAN IVP PRN ×2 (11:16→12:00)
--- NOTE | 2020-08-28 19:12 | OPERATIVE REPORT ---
DATE OF SERVICE: 08/28/2020 PREOPERATIVE DIAGNOSES: 1. A 45-year-old female with abnormal uterine bleeding. 2. BMI greater than 40. POSTOPERATIVE DIAGNOSES: 1. A 45-year-old female with abnormal uterine bleeding. 2. BMI greater than 40. PROCEDURE PERFORMED: D and C. SURGEON: Won Gonzalez DO. ANESTHESIA: General LMA. ESTIMATED BLOOD LOSS: Minimal. URINE OUTPUT: 200 mL clear at the start of the procedure. FLUIDS: 700 mL of lactated Ringer's solution. FINDINGS: Grossly normal-appearing external female genitalia with moderate amount of endometrial curetting tissue collected on endometrial curette. SPECIMEN SENT: Endometrial curettings. INDICATIONS FOR PROCEDURE: This 45-year-old female was a consultation to me from the [facility] for abnormal uterine bleeding. Due to her weight, I discussed with the patient the risk of endometrial carcinoma. I discussed with the patient need for endometrial sampling due to this prior to moving forward with any further treatment modalities. Risks of the procedure were discussed with the patient in detail. We discussed in-office endometrial biopsy. The patient deferred doing this as there are no curative measures that come from endometrial biopsy; however, we could potentially solve the problem with the D and Jonathon. After all her questions were answered, consent was obtained in the preoperative area and the patient was taken to the operating room. OPERATIVE REPORT IN DETAIL: Once in the operating room, anesthesia was found to be adequate, she was placed in dorsal lithotomy position, and prepped and draped in a normal sterile fashion. A timeout was performed. The bladder was then drained using straight catheterization. A weighted speculum was inserted into the patient's vagina. Right angle retractor was used to visualize the cervix, which was grasped at 12 o'clock position using a long Allis clamp. I then performed a paracervical block at the 3 and 9 o'clock positions on the cervix. Care was taken to aspirate before injecting, 5 mL were injected into each site of 0.25% Marcaine. I then gently sounded the uterine cavity, depth was found to be 8 cm. I then gently dilated the cervix using Hanks dilators to maximum dilatation approximately 1.2 cm, at which point, I performed curetting of the endometrial cavity using a small to medium size endometrial curette. This tissue was sent as endometrial curettings, after which I removed all the instruments from the patient's vagina. The patient tolerated the procedure well and was sent to recovery in stable condition. Lap and sponge count was correct at the end of the procedure. Instrument counts correct as well. Job ID: [id number] DocumentID: [id number] Dictated Date: 08/28/2020 10:39:40 Washroom Operator Date: 08/28/2020 19:11:19 Dictated By: DO BERNICE SILVESTRE
== END 2020-08-28 12:30 | disposition home or self-care (01) ==
LOC: SDC 08:28
PROVIDERS: ATTEND Obstetrics & Gynecology
DX: N93.9 Abnormal uterine and vaginal bleeding, unspecified (principal); R93.89 Abnormal findings on diagnostic imaging of other specified body structures; K21.9 Gastro-esophageal reflux disease without esophagitis; E66.01 Morbid (severe) obesity due to excess calories; F41.9 Anxiety disorder, unspecified; F32.9 Major depressive disorder, single episode, unspecified; Z88.5 Allergy status to narcotic agent; Z88.0 Allergy status to penicillin; Z88.1 Allergy status to other antibiotic agents; Z79.899 Other long term (current) drug therapy; Z87.891 Personal history of nicotine dependence; Z90.49 Acquired absence of other specified parts of digestive tract; Z90.89 Acquired absence of other organs; Z82.49 Family history of ischemic heart disease and other diseases of the circulatory system; Z80.3 Family history of malignant neoplasm of breast; Z80.0 Family history of malignant neoplasm of digestive organs; Z68.41 Body mass index [BMI] 40.0-44.9, adult
CPT/HCPCS: 36415; 84703; 85025; 86850; 86900; 86901; 87081; 88305

== ENCOUNTER 2020-09-18 05:37 | Outpatient (CLI) | payer OTHER ==
[~2020-09-18] VITALS: Ht 162.6 cm; Wt 112.3 kg
[~2020-09-18 05:37] MED LIST changes: +IBUP-1773 PO; +OXYC-200 PO
== END 2020-09-18 13:45 ==
LOC: PREOP 05:37
PROVIDERS: ATTEND Obstetrics & Gynecology
DX: Z01.812 Encounter for preprocedural laboratory examination (principal); D25.9 Leiomyoma of uterus, unspecified

== ENCOUNTER 2020-09-25 05:56 | Day surgery (SDC) | payer OTHER ==
--- NOTE | 2020-09-11 07:10 | Anesthesia-General Post-Op ---
General Significant Intra-Op Events Notes postop addendum for 08-28-20 at 1100 Patient Condition Mental Status/LOC: Same as Preop Cardiovascular: Satisfactory Nausea/Vomiting: Absent Respiratory: Satisfactory Pain: Controlled Complications: Absent Post Op Complications Complications None Follow Up Care/Instructions Patient Instructions None needed. Anesthesia/Patient Condition Patient Condition Patient is doing well, no complaints, stable vital signs, no apparent adverse anesthesia problems. No complications reported per nursing. ENRIQUE GONCALVES CRNA Sep 11, 2020 07:10
[2020-09-25] VITALS (13 sets, daily range): BP systolic 97–160; BP diastolic 62–102
[~2020-09-25] VITALS: Ht 162.6 cm; Wt 112.3 kg
[2020-09-25] MEDS ORDERED: BUPIVACAINE 0.25% 30 ML (SENSORCAINE) VIAL ONE (06:24)
[2020-09-25] MEDS ORDERED: ceFAZolin 2 GM IV Premixed 50 ML IV ONE (06:30)
[2020-09-25] MEDS ORDERED: LACTATED RINGERS 1,000 ML IV PRN (06:30)
[2020-09-25] MEDS ORDERED: LACTATED RINGERS 1,000 ML IV ONE (06:30)
[2020-09-25] MEDS ORDERED: metroNIDAZOLE 500MG/100ML IVPB 100 ML IV ONE (06:30)
[2020-09-25] MEDS ORDERED: ONDANSETRON 4 MG/2 ML (SDV) Z0FRAN ONE ×2 (06:31→06:46)
[2020-09-25 06:42] LABS: BASOPHILS % (AUTO) 1 % (0-10); EOSINOPHILS # (AUTO) 0.1 10^3/uL (0.0-0.3); EOSINOPHILS % (AUTO) 2 % (0-10); HEMATOCRIT 39 % (35-52); HEMOGLOBIN 12.5 g/dL (11.5-16.0); LYMPHOCYTES # (AUTO) 1.5 10^3/uL (1.0-4.0); LYMPHOCYTES % (AUTO) 21 % (12-44); MEAN CORPUSCULAR HEMOGLOBIN 29 pg (25-34); MEAN CORPUSCULAR HGB CONC 32 g/dL (32-36); MEAN CORPUSCULAR VOLUME 91 fL (80-99); MEAN PLATELET VOLUME 9.8 fL (9.0-12.2); MONOCYTES # (AUTO) 0.6 10^3/uL (0.0-1.0); MONOCYTES % (AUTO) 8 % (0-12); NEUTROPHILS % (AUTO) 69 % (42-75); PLATELET COUNT 358 10^3/uL (130-400); WHITE BLOOD COUNT 7.2 10^3/uL (4.3-11.0)
[2020-09-25] MEDS ORDERED: FAMOTIDINE 20MG/2ML IV (PEPCID) IV ONE (06:45)
[2020-09-25] MEDS ORDERED: ONDANSETRON 4 MG/2 ML (SDV) Z0FRAN IV ONE (06:45)
[2020-09-25] MEDS ORDERED: SEVOFLURANE (ULTANE) 15 ML INHAL SOLN ONE ×5 (06:46→08:43)
[2020-09-25] MEDS ORDERED: MIDAZOLAM 2 MG/2 ML (VERSED) VIAL ONE (06:46)
[2020-09-25] MEDS ORDERED: LIDOCAINE PF 2% 5 ML (XYLOCAINE) VIAL ONE (06:46)
[2020-09-25] MEDS ORDERED: proPOfol 200 MG/20 ML (DIPRIVAN) VIAL IV ONE (06:46)
[2020-09-25] MEDS ORDERED: GLYCOPYRROLATE 0.2 MG/ML (ROBINUL) 2 ML VIAL ONE (06:46)
[2020-09-25] MEDS ORDERED: ROCURONIUM 10 MG/ML 5 ML SYRINGE IV ONE (06:46)
[2020-09-25] MEDS ORDERED: NEOSTIGMINE 3 MG/3 ML VIAL ONE (06:46)
[2020-09-25] MEDS ORDERED: fentaNYL INJ 100 MCG/2 ML AMP ONE (06:47)
[2020-09-25] MEDS ORDERED: CETI10CA PO (07:14)
--- NOTE | 2020-09-25 07:14 | Progress Note-Pre Operative ---
Pre-Operative Progress Note H&P Reviewed The H&P was reviewed, patient examined and no changes noted. Date Seen by Provider: Sep 25, 2020 Time Seen by Provider: 07:10 Date H&P Reviewed: Sep 25, 2020 Time H&P Reviewed: 07:10 Pre-Operative Diagnosis: AUB, Fibroid uterus, BMI > 40 ZEENAT HE DO Sep 25, 2020 07:14
[2020-09-25] MEDS ORDERED: ZOLPIDEM 5 MG (AMBIEN) TAB PO PRN (07:15)
[2020-09-25] MEDS ORDERED: ONDANSETRON 4 MG/2 ML (SDV) Z0FRAN IV PRN (07:15)
[2020-09-25] MEDS ORDERED: CHLORASEPTIC LOZENGE MM PRN (07:15)
[2020-09-25] MEDS ORDERED: ANTACID SUSP 30 ML UDC (MYLANTA) PO PRN (07:15)
[2020-09-25] MEDS ORDERED: SIMETHICONE 80 MG (MYLICON) CHEW PO PRN (07:15)
[2020-09-25] MEDS ORDERED: OXYC1TAB87 PO (07:21)
[2020-09-25] MEDS ORDERED: DCS100C PO (07:21)
[2020-09-25] MEDS ORDERED: IBUP-844 PO (07:21)
--- NOTE | 2020-09-25 07:22 | Discharge Inst-Women's Service ---
Discharge Inst-Women's Serv Depart Medication/Instructions New, Converted or Re-Newed RX: RX on Chart Problems Reviewed?: Yes Consults/Follow Up Additional Follow Up: Yes Orders/Referrals Dr. Gonzalez in 7-10 days and in 8 weeks Activity Activity: Activity as Tolerated Driving Instructions: No Driving for 1 Week NO SMOKING: NO SMOKING Nothing Inside Vagina: No Douching, No [place], No Tampons Diet Discharge Diet: No Restrictions Symptoms to Report to : Bleeding Excessive, Pain Increased, Fever Over 101 Degrees F, Vaginal Bleeding Increase, Questions/Concerns For Any Problems or Questions: Contact Your Physician Skin/Wound Care Infection Signs and Symptoms: Increased Redness, Foul Odor of Wound, Increased Drainage, Skin Itchy or Has a Rash, Increased Swelling, Temperature Above 101 F Operative Area Clean and Dry: Keep Incision Clean/Dry Stitches/Patricia/Dermabond: Dermabond, Care of Stitches Bathing Instructions: ZEENAT Maya DO Sep 25, 2020 07:22
[2020-09-25] MEDS ORDERED: PHENYLEPHRINE 100 MCG/ML 10 ML (ANESTHESIA) SYR ONE (07:44)
[2020-09-25] MEDS: LACTATED RINGERS 1,000 ML IV SCH ×2 (07:50→10:57)
[2020-09-25] MEDS ORDERED: morphine INJ 10 MG/ML 1ML (SYR OR VIAL) ONE (09:11)
[2020-09-25] MEDS ORDERED: KETOROLAC 30 MG/ML VIAL ONE (09:11)
[2020-09-25] MEDS ORDERED: ONDANSETRON 4 MG/2 ML (SDV) Z0FRAN IVP PRN (09:15)
[2020-09-25] MEDS ORDERED: morphine INJ 10 MG/ML 1ML (SYR OR VIAL) IVP ONE (09:15)
[2020-09-25] MEDS ORDERED: HYDROmorphone 2 MG/ML VIAL (DILAUDID) IV ONE ×2 (09:15→11:15)
[2020-09-25] MEDS: KETOROLAC 30 MG/ML VIAL IV PRN ×2 (09:20→15:11)
[2020-09-25] MEDS ORDERED: oxyCODONE/APAP 5/325MG (PERCOCET 5) TABLET ONE (10:01)
[2020-09-25] MEDS: oxyCODONE/APAP 5/325MG (PERCOCET 5) TABLET PO PRN ×3 (10:11→19:40)
[2020-09-25] MEDS ORDERED: diphenhydrAMINE 50 MG/ML INJ (BENADRYL) IM ONE (11:15)
[2020-09-25] MEDS ORDERED: HYDROmorphone 2 MG/ML VIAL (DILAUDID) ONE (11:18)
[2020-09-25] MEDS ORDERED: diphenhydrAMINE 50 MG/ML INJ (BENADRYL) ONE (11:18)
--- NOTE | 2020-09-25 13:06 | Anesthesia-General Post-Op ---
General Patient Condition Mental Status/LOC: Same as Preop Cardiovascular: Satisfactory Nausea/Vomiting: Absent Respiratory: Satisfactory Pain: Controlled Complications: Absent Post Op Complications Complications None Follow Up Care/Instructions Patient Instructions None needed. Anesthesia/Patient Condition Patient Condition Patient is doing well, no complaints, stable vital signs, no apparent adverse anesthesia problems. OMAR GALVEZ DO Sep 25, 2020 13:06
[2020-09-25] MEDS: diphenhydrAMINE 50 MG/ML INJ (BENADRYL) IM PRN ×2 (13:14→17:01)
--- NOTE | 2020-09-25 19:22 | OPERATIVE REPORT ---
DATE OF SERVICE: 09/25/2020 PREOPERATIVE DIAGNOSES: 1. A 45-year-old female with abnormal uterine bleeding. 2. Fibroid uterus. 3. BMI greater than 40. POSTOPERATIVE DIAGNOSES: 1. A 45-year-old female with abnormal uterine bleeding. 2. Fibroid uterus. 3. BMI greater than 40. PROCEDURE: Robotic-assisted total laparoscopic hysterectomy with bilateral salpingectomy. SURGEON: Won He DO ANESTHESIA: General endotracheal. ESTIMATED BLOOD LOSS: Minimal. URINE OUTPUT: 80 mL clear at the end of procedure. FLUIDS: 1600 mL lactated Ringer's solution. FINDINGS: A slightly bulky and enlarged uterus. Grossly normal appearing serosal surface. Grossly normal appearing bilateral fallopian tubes and ovaries. SPECIMEN SENT: Uterus, cervix, bilateral fallopian tubes. INDICATIONS FOR PROCEDURE: This 45-year-old female is a patient that is consulted to my office for a heterogenous appearing endometrium on ultrasound as well as fibroid uterus and abnormal uterine bleeding. The patient was evaluated initially with an endometrial biopsy in the form of a D and C, which showed dyssynchronous proliferative phase endometrium; however, there were no signs of hyperplasia or malignancy. Due to her fibroids, she did continue to bleed heavily. We discussed with definitive measures for treatment of this. Risks of the procedure were discussed with the patient in detail including risk of bleeding, infection, damage to surrounding structures including, but not limited to bowel, bladder, ureter, kidneys, possible need for operation, postoperative complications that could occur, risk from anesthesia, recovery timeframe and even . After everything was discussed with the patient in detail, consent was obtained in the preoperative area and the patient was taken to the operating room. OPERATIVE REPORT IN DETAIL: Once in the operating room, general anesthesia was found to be adequate, placed in dorsal lithotomy position, prepped and draped in normal sterile fashion. A timeout was performed. Banks catheter was placed using sterile technique. A weighted speculum inserted to the patient's vagina. Right angle retractor was used to visualize the cervix, which was grasped at 12 o'clock position using a long Allis clamp. I then placed an 0 Vicryl suture through the anterior lip of the cervix and used as my retraction. I removed the Allis clamp. I then gently sound the uterine cavity, depth was found to be 8 cm. I then placed a Twyla uterine manipulator to a depth of 8 cm with a 3.5 cm colpotomy ring, which was advanced around the vaginal fornix. This offers excellent uterine manipulation after it was in place, I then removed all the other instruments from the patient's vagina, performed a change of gloves and took my attention to the abdomen where supraumbilically I infiltrated this area using 0.25% Marcaine and made an 8 mm incision with a knife and directed Veress needle through the incision, intraperitoneal placement was confirmed using saline drop test. I then proceeded with insufflation using CO2 gas and opening pressure 2 mmHg was noted, I proceeded to maximum pressure of 15 mmHg, at which point I removed the Veress needle and introduced an 8 mm blunt laparoscopic da Siomara camera trocar. Once this was in place, I am able to confirm intraperitoneal placement using the da Siomara laparoscope. I then briefly scanned the upper abdominal anatomy appears to be normal. There appears to be no damage upon my entry site to the viscera. I then had the patient placed in steep Trendelenburg where I am able to visualize all my pelvic anatomy was defined in my findings above. I then placed two lateral trocars. These were both approximately 8 to 10 cm lateral to my supraumbilical trocar, they are both 8 mm trocar sites. The skin was infiltrated using 0.25% Marcaine. An 8 mm incisions were made and the trocars were placed under direct visualization of laparoscope. Once these were both in place, I brought in the da Siomara robot and docked in appropriate fashion, placing the da Siomara vessel sealer in the left hand and monopolar parminder in the right hand. I performed the following dissection bilaterally at the [employer] operative console. Starting at the uteroovarian ligament, I bipolar cauterized, transected and sealed this using the da Siomara vessel sealer. I then created a window in the mesosalpinx and took this dissection down the mesosalpinx amputating the fallopian tube from its surrounding blood supply using cautery to achieve hemostasis during this dissection. I then grasped the round ligament, which I bipolar cauterized, sealed and transected using da Siomara vessel sealer. I then grasped the entire broad ligament, which I sealed and transected using vessel sealer down to the level of the lower uterine segment, at which point I the anterior and posterior leaflets of the broad ligament out. The anterior leaflet was taken to the anterior vaginal fornix. The posterior leaflet was taken around to the posterior vaginal fornix. This allows me to skeletonize the uterine vessels laterally, which I bipolar cauterized and transected using the vessel sealer. I am able to visualize the ureters throughout the process of this dissection and stay very well clear of the ureters path. I then created a colpotomy at 12 o'clock position using monopolar parminder and took this circumferentially around the vaginal fornix amputating the cervix from the vagina. The entire specimen was then removed through the vagina. I then proceeded with closing the lateral vaginal apices of the vaginal cuff using 2-0 Vicryl suture in a [id number] fashion colposuspending them to the uterosacral ligaments. I then proceeded with closing the remainder of the vaginal cuff using 2-0 V-Loc in a running fashion, after which there was no active bleeding noted from any of my dissection planes. I then copiously irrigated the pelvis using normal saline. Once again, there was no active bleeding noted from any of my dissection planes. I undocked the da Siomara robot, proceeded with remainder of the case laparoscopically. I placed Surgiflo hemostatic agent over all my planes of dissection and had the patient taken out of steep Trendelenburg where I removed the lateral trocars under direct visualization of the laparoscope. The supraumbilical trocar was left in place to release insufflation and to introduce 10 mL of 0.25% Marcaine into the peritoneal cavity for postoperative pain management. I then removed this trocar as well. The skin reapproximated using 4-0 Monocryl in interrupted subcuticular stitches. Dermabond was applied to incision. Bandage was placed over the incisions as well. Banks catheter was left in place. The patient tolerated the procedure well and was taken to recovery area in stable condition. Lap and sponge counts were correct at the end of the procedure. Instrument count was correct as well. Two grams of Ancef, 500 mg of Flagyl were given preoperatively for infection prophylaxis. Job ID: [id number] DocumentID: [id number] Dictated Date: 09/25/2020 10:28:58 Actuarial Science Teacher Date: 09/25/2020 19:21:30 Dictated By: WON HE DO
[2020-09-25] MEDS: IBUPROFEN 600 MG (MOTRIN) TAB PO SCH (21:02)
[2020-09-25] MEDS: DOCUSATE SODIUM 100 MG (COLACE) CAP PO PRN (21:03)
[2020-09-26] MEDS: oxyCODONE/APAP 5/325MG (PERCOCET 5) TABLET PO PRN ×2 (00:48→07:01)
[2020-09-26 02:38] VITALS: BP 134/75
[2020-09-26] MEDS: IBUPROFEN 600 MG (MOTRIN) TAB PO SCH ×2 (02:40→08:31)
[2020-09-26 08:27] VITALS: BP 150/84
[2020-09-26] MEDS: DOCUSATE SODIUM 100 MG (COLACE) CAP PO PRN (08:30)
== END 2020-09-26 08:50 | disposition home or self-care (01) ==
LOC: SDC 05:56 → WS 09:55 → SDC 09-26 08:50
PROVIDERS: ATTEND Obstetrics & Gynecology
DX: D25.1 Intramural leiomyoma of uterus (principal); D25.0 Submucous leiomyoma of uterus; D25.2 Subserosal leiomyoma of uterus; N93.9 Abnormal uterine and vaginal bleeding, unspecified; N72 Inflammatory disease of cervix uteri; N88.8 Other specified noninflammatory disorders of cervix uteri; N83.8 Other noninflammatory disorders of ovary, fallopian tube and broad ligament; E66.01 Morbid (severe) obesity due to excess calories; E78.5 Hyperlipidemia, unspecified; K21.9 Gastro-esophageal reflux disease without esophagitis; N39.0 Urinary tract infection, site not specified; F41.9 Anxiety disorder, unspecified; F32.9 Major depressive disorder, single episode, unspecified; Z88.0 Allergy status to penicillin; Z88.1 Allergy status to other antibiotic agents; Z88.5 Allergy status to narcotic agent; Z79.899 Other long term (current) drug therapy; Z87.891 Personal history of nicotine dependence; Z90.89 Acquired absence of other organs; Z90.49 Acquired absence of other specified parts of digestive tract; Z68.41 Body mass index [BMI] 40.0-44.9, adult; Z82.49 Family history of ischemic heart disease and other diseases of the circulatory system; Z80.3 Family history of malignant neoplasm of breast; Z80.0 Family history of malignant neoplasm of digestive organs
CPT/HCPCS: 36415; 84703; 85025; 86850; 86900; 86901; 87081

== ENCOUNTER 2021-02-09 12:49 | Emergency (ER) | payer OTHER ==
[~2021-02-09] VITALS: Ht 154.9 cm; Wt 103.5 kg
[~2021-02-09 12:49] MED LIST changes: +CETI10CA PO; +DCS100C PO; +IBUP-844 PO; +OXYC1TAB87 PO; -SULF1TAB35 PO; +SULF1TAB38 PO
[2021-02-09] MEDS ORDERED: ONDANSETRON 4 MG/2 ML (SDV) Z0FRAN IVP ONE (13:30)
[2021-02-09] MEDS ORDERED: FAMOTIDINE 20MG/2ML IV (PEPCID) IVP ONE (13:30)
[2021-02-09] MEDS ORDERED: fentaNYL INJ 100 MCG/2 ML AMP IVP ONE (13:45)
[2021-02-09 13:59] LABS: ALBUMIN 4.3 GM/DL (3.2-4.5); BASOPHILS % (AUTO) 1 % (0-10); EOSINOPHILS # (AUTO) 0.1 10^3/uL (0.0-0.3); EOSINOPHILS % (AUTO) 1 % (0-10); HEMATOCRIT 39 % (35-52); HEMOGLOBIN 12.7 g/dL (11.5-16.0); LYMPHOCYTES # (AUTO) 2.2 10^3/uL (1.0-4.0); LYMPHOCYTES % (AUTO) 29 % (12-44); MEAN CORPUSCULAR HEMOGLOBIN 29 pg (25-34); MEAN CORPUSCULAR HGB CONC 32 g/dL (32-36); MEAN CORPUSCULAR VOLUME 89 fL (80-99); MONOCYTES # (AUTO) 0.6 10^3/uL (0.0-1.0); MONOCYTES % (AUTO) 8 % (0-12); NEUTROPHILS # (AUTO) 4.7 10^3/uL (1.8-7.8); NEUTROPHILS % (AUTO) 61 % (42-75); PLATELET COUNT 445 10^3/uL (130-400); POTASSIUM 3.9 MMOL/L (3.6-5.0); WHITE BLOOD COUNT 7.7 10^3/uL (4.3-11.0)
[2021-02-09 14:00] LABS: CALCIUM 9.7 MG/DL (8.5-10.1)
[2021-02-09 14:01] LABS: TOTAL PROTEIN 7.6 GM/DL (6.4-8.2)
[2021-02-09 14:03] LABS: BILIRUBIN,TOTAL 0.2 MG/DL (0.1-1.0)
[2021-02-09 14:05] LABS: CREATININE SERUM 0.85 MG/DL (0.60-1.30)
[2021-02-09 14:13] LABS: BILIRUBIN,URINE NEGATIVE (NEGATIVE); CLARITY,URINE CLEAR; COLOR,URINE YELLOW; GLUCOSE, URINE (UA) NEGATIVE (NEGATIVE); KETONES,URINE NEGATIVE (NEGATIVE); LEUKOCYTE ESTERASE ,URINE NEGATIVE (NEGATIVE); NITRITE,URINE NEGATIVE (NEGATIVE); PH,URINE 5.5 (5-9); PROTEIN,URINE NEGATIVE (NEGATIVE)
[2021-02-09] MEDS ORDERED: ANTACID SUSP 30 ML UDC (MYLANTA) PO ONE (14:30)
[2021-02-09] MEDS ORDERED: LIDOCAINE 2% VISCOUS 15 ML UDC PO ONE (14:30)
[2021-02-09] MEDS ORDERED: morphine INJ 10 MG/ML 1ML (SYR OR VIAL) IVP STA (14:39)
[2021-02-09 14:43] LABS: BACTERIA,URINE NEGATIVE /HPF
[2021-02-09] MEDS ORDERED: NS 100 ML (IVPB) BAG IV ONE (15:00)
[2021-02-09] MEDS ORDERED: IOHEXOL 350 MG/ML 100 ML (OMNIPAQUE 350) VIAL IV ONE (15:00)
[2021-02-09] MEDS ORDERED: HOLD METFORMIN - RECEIVED CONTRAST 20 ML VIAL IV SCH (15:00)
--- NOTE | 2021-02-09 15:04 | ED Abdominal Pain ---
General Chief Complaint: Abdominal/GI Problems Stated Complaint: ABD PAIN/PAIN Nursing Triage Note: Pt ambulatory into ER with complaint of Upper L. Abdominal Pain x3 days. Pain is a sharp/stabbing like pain that is rated at a 9/10. Pt states that she has had some nausea with it but no vomiting. Source of Information: Patient Exam Limitations: No Limitations History of Present Illness Date Seen by Provider: Feb 09, 2021 Time Seen by Provider: 13:35 Initial Comments This 45-year-old woman presents to the emergency room with complaints of left upper quadrant pain that radiates to her back. This has been gradually worsening over about 3 days. She has nausea without vomiting. She denies constipation or diarrhea. She denies any history of kidney stones. She has had no changes in her urine. She does report having pain promptly after swallowing food or fluid. She has had prior cholecystectomy. She is afebrile. She does not drink alcohol. Allergies and Home Medications Allergies Coded Allergies: Penicillins (Unverified Allergy, Mild, 09/25/20) ciprofloxacin (Unverified Allergy, Mild, 09/25/20) codeine (Unverified Allergy, Mild, 09/25/20) hydrocodone (Verified Adverse Reaction, Unknown, Itching, 09/25/20) Home Medications Atorvastatin Calcium 10 Mg Tablet, 10 MG PO HS, (Reported) Cetirizine HCl 10 Mg Capsule, 10 MG PO DAILY, (Reported) Cyclobenzaprine HCl 10 Mg Tablet, 10 MG PO TID PRN for MUSCLE SPASMS, (Reported) Docusate Sodium 100 Mg Capsule, 100 MG PO BID PRN for CONSTIPATION-1ST LINE Prescribed by: ZEENAT HE on 09/25/20720 Duloxetine HCl 30 Mg Capsule.dr, 30 MG PO HS, (Reported) Ibuprofen 600 Mg Tablet, 600 MG PO Q6H Prescribed by: ZEENAT HE on 09/25/20720 Omeprazole Magnesium 20 Mg Tablet.dr, 20 MG PO for HEARTBURN, (Reported) Ondansetron HCl 4 Mg Tab, 4 MG PO BID PRN for NAUSEA/VOMITING, (Reported) Oxycodone HCl/Acetaminophen 1 Each Tablet, 1-2 TAB PO Q6HR PRN for PAIN-MODERATE (5-7) Prescribed by: ZEENAT HE on 09/25/20720 Patient Home Medication List Home Medication List Reviewed: Yes Review of Systems Review of Systems Constitutional: no symptoms reported EENTM: No Symptoms Reported Respiratory: No Symptoms Reported Cardiovascular: No Symptoms Reported Gastrointestinal: See HPI Genitourinary: No Symptoms Reported Musculoskeletal: no symptoms reported Skin: no symptoms reported Psychiatric/Neurological: No Symptoms Reported Endocrine: No Symptoms Reported Hematologic/Lymphatic: No Symptoms Reported Past Isaxhgv-Yfaddt-Fnyvai Hx Patient Social History Tobacco Use?: No Smoking Status: Former Smoker Use of E-Cig and/or Vaping dev: No Substance use?: No Alcohol Use?: No Pt feels they are or have been: No Immunizations Up To Date Tetanus Booster (TDap): Unknown Influenza Vaccine Up-to-Date: No; Not Current Seasonal Allergies Seasonal Allergies: Yes Past Medical History Surgeries: Yes (D&C) Appendectomy, Section, Gallbladder, Hysterectomy Respiratory: Yes Pneumonia Currently Using CPAP: No Currently Using BIPAP: No Cardiac: Yes Chronic Edema/Swelling Neurological: No Genitourinary: No UTI-Chronic Gastrointestinal: Yes Gastroesophageal Reflux, Ulcer Musculoskeletal: Yes Chronic Back Pain Endocrine: No HEENT: No Cancer: No Psychosocial: Yes Anxiety, Depression Integumentary: No Blood Disorders: No Physical Exam Vital Signs Vital Signs - First Documented 02/09/21 12:57 Temp 36.9 Pulse 104 Resp 20 B/P (MAP) 145/101 (116) Pulse Ox 97 O2 Delivery Room Air Capillary Refill : Less Than 3 Seconds Height/Weight/BMI Height: 5'4" Weight: 200lbs. oz. 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 as tested, no motor/sensory deficits, alert, normal mood/affect, oriented x 3 Skin: normal color, warm/dry Progress/Results/Core Measures Results/Orders Lab Results Laboratory Tests Test 02/09/21 13:06 02/09/21 14:03 Range/Units White Blood Count 7.7 4.3-11.0 10^3/uL Red Blood Count 4.41 3.80-5.11 10^6/uL Hemoglobin 12.7 11.5-16.0 g/dL Hematocrit 39 35-52 % Mean Corpuscular Volume 89 80-99 fL Mean Corpuscular Hemoglobin 29 25-34 pg Mean Corpuscular Hemoglobin Concent 32 32-36 g/dL Red Cell Distribution Width 13.6 10.0-14.5 % Platelet Count 445 H 130-400 10^3/uL Mean Platelet Volume 11.0 9.0-12.2 fL Immature Granulocyte % (Auto) 0 % Neutrophils (%) (Auto) 61 42-75 % Lymphocytes (%) (Auto) 29 12-44 % Monocytes (%) (Auto) 8 0-12 % Eosinophils (%) (Auto) 1 0-10 % Basophils (%) (Auto) 1 0-10 % Neutrophils # (Auto) 4.7 1.8-7.8 10^3/uL Lymphocytes # (Auto) 2.2 1.0-4.0 10^3/uL Monocytes # (Auto) 0.6 0.0-1.0 10^3/uL Eosinophils # (Auto) 0.1 0.0-0.3 10^3/uL Basophils # (Auto) 0.0 0.0-0.1 10^3/uL Immature Granulocyte # (Auto) 0.0 0.0-0.1 10^3/uL Sodium Level 136 135-145 MMOL/L Potassium Level 3.9 3.6-5.0 MMOL/L Chloride Level 100 98-107 MMOL/L Carbon Dioxide Level 26 21-32 MMOL/L Anion Gap 10 5-14 MMOL/L Blood Urea Nitrogen 10 7-18 MG/DL Creatinine 0.85 0.60-1.30 MG/DL Estimat Glomerular Filtration Rate 72 BUN/Creatinine Ratio 12 Glucose Level 134 H 70-105 MG/DL Calcium Level 9.7 8.5-10.1 MG/DL Corrected Calcium 9.5 8.5-10.1 MG/DL Total Bilirubin 0.2 0.1-1.0 MG/DL Aspartate Amino Transf (AST/SGOT) 14 5-34 U/L Alanine Aminotransferase (ALT/SGPT) 24 0-55 U/L Alkaline Phosphatase 142 H 40-136 U/L C-Reactive Protein High Sensitivity 0.68 H 0.00-0.50 MG/DL Total Protein 7.6 6.4-8.2 GM/DL Albumin 4.3 3.2-4.5 GM/DL Lipase 19 8-78 U/L Urine Color YELLOW Urine Clarity CLEAR Urine pH 5.5 5-9 Urine Specific Cook Sta <=1.005 1.016-1.022 Urine Protein NEGATIVE NEGATIVE Urine Glucose (UA) NEGATIVE NEGATIVE Urine Ketones NEGATIVE NEGATIVE Urine Nitrite NEGATIVE NEGATIVE Urine Bilirubin NEGATIVE NEGATIVE Urine Urobilinogen 0.2 < = 1.0 MG/DL Urine Leukocyte Esterase NEGATIVE NEGATIVE Urine RBC (Auto) NEGATIVE NEGATIVE Urine RBC NONE /HPF Urine WBC NONE /HPF Urine Squamous Epithelial Cells 2-5 /HPF Urine Crystals NONE /LPF Urine Bacteria NEGATIVE /HPF Urine Casts NONE /LPF Urine Mucus NEGATIVE /LPF Urine Culture Indicated NO My Orders Orders - SUBHASH GOODWIN MD Cbc With Automated Diff (02/09/21 13:29) Comprehensive Metabolic Panel (02/09/21 13:29) Hs C Reactive Protein (02/09/21 13:29) Lipase (02/09/21 13:29) Ua Culture If Indicated (02/09/21 13:29) Ondansetron Injection (Zofran Injectio (02/09/21 13:30) Famotidine Injection (Pepcid Injection) (02/09/21 13:30) Fentanyl Inj (Sublimaze Injection) (02/09/21 13:45) Lidocaine 2% Viscous 15 Ml (Xylocaine Vi (02/09/21 14:30) Antacid Suspension (Mylanta Suspension (02/09/21 14:30) Morphine Injection (Morphine Injection (02/09/21 14:39) Ct Abdomen/Pelvis W (02/09/21 14:39) Iohexol Injection (Omnipaque 350 Mg/Ml 1 (02/09/21 15:00) Received Contrast (Hold Metformin- Contr (02/09/21 15:00) Ns (Ivpb) (Sodium Chloride 0.9% Ivpb Bag (02/09/21 15:00) Medications Given in ED Current Medications Medications Dose Ordered Sig/Sandro Route Start Time Stop Time Status Last Admin Dose Admin Al Hydrox/Mg Hydrox/Simethicone 30 ml ONCE ONCE PO 02/09/21 14:30 02/09/21 14:31 DC 02/09/21 14:26 30 ML Famotidine 20 mg ONCE ONCE IVP 02/09/21 13:30 02/09/21 13:31 DC 02/09/21 13:42 20 MG Fentanyl Citrate 75 mcg ONCE ONCE IVP 02/09/21 13:45 02/09/21 13:46 DC 02/09/21 13:48 75 MCG Iohexol 100 ml ONCE ONCE IV 02/09/21 15:00 02/09/21 15:01 DC 02/09/21 15:03 99 ML Lidocaine HCl 15 ml ONCE ONCE PO 02/09/21 14:30 02/09/21 14:31 DC 02/09/21 14:26 15 ML Ondansetron HCl 8 mg ONCE ONCE IVP 02/09/21 13:30 02/09/21 13:31 DC 02/09/21 13:43 8 MG Sodium Chloride 100 ml ONCE ONCE IV 02/09/21 15:00 02/09/21 15:01 DC 02/09/21 15:03 80 ML Vital Signs/I&O 02/09/21 12:57 Temp 36.9 Pulse 104 Resp 20 B/P (MAP) 145/101 (116) Pulse Ox 97 O2 Delivery Room Air Blood Pressure Mean: 116 Progress Progress Note : Time: 15:04 Progress Note Patient was treated with fentanyl, Zofran, and Pepcid. Pain rebounded and she was treated with morphine. GI cocktail did not improve her pain. Labs are unremarkable. Further evaluation will be pursued with CT scan. Departure Impression Primary Impression: Left sided abdominal pain of unknown cause Additional Impression: Nausea alone Disposition: 01 HOME, SELF-CARE Condition: Improved Departure-Patient Inst. Decision time for Depature: 15:50 Referrals: [facility] (PCP/Family) Primary Care Physician Patient Instructions: Gastritis, Peptic Ulcers (DC), Severe Abdominal Pain, Adult (DC) Add. Discharge Instructions: Taking dual antiacid therapy with Pepcid (famotidine) and omeprazole for at least 1 month. Avoid the following: Eating large meals, eating close to bedtime, caffeine, carbonation, citrus fruits and juices, chocolate, mints, tomato products, alcohol, spicy foods, fatty or greasy foods, NSAID medications such as ibuprofen or naproxen, tobacco products, or anything else you know irritates your stomach. The exact cause of your abdominal pain is uncertain but could possibly be related to gastritis (inflammation of the stomach lining) or a stomach ulcer. If this is the case, it may take a few weeks for the pain to completely resolve with treatment. Follow-up with your primary care provider within the next 1 to 2 weeks. For mild pain you may take Tylenol (acetaminophen) up to 1000 mg every 6 hours as needed. For more severe pain take the hydrocodone as prescribed. Call with questions or concerns. Return to the emergency room if you have worsening symptoms. All discharge instructions reviewed with patient and/or family. Voiced understanding. Scripts Omeprazole (Omeprazole) 20 Mg Tablet.dr 20 MG PO BID, #60 TAB Prov: SUBHASH GOODWIN MD 02/09/21 Famotidine (Pepcid) 20 Mg Tablet 20 MG PO BID, #60 TAB Prov: SUBHASH GOODWIN MD 02/09/21 Tramadol HCl (Ultram) 50 Mg Tablet 50 MG PO Q6H PRN for PAIN-BREAKTHROUGH, #10 TAB Prov: SUBHASH GOODWIN MD 02/09/21 SUBHASH GOODWIN MD Feb 09, 2021 15:04
--- NOTE | 2021-02-09 15:21 | Diagnostic Imaging Report ---
EXAMINATION: CT abdomen and pelvis with intravenous contrast. TECHNIQUE: Multiple contiguous axial images were obtained through the abdomen and pelvis after the uneventful administration of intravenous contrast. All CT scans use one or more of the following dose optimizing techniques: Automated exposure control, MA and/or KvP adjustment based on patient size and exam type or iterative reconstruction. HISTORY: LUQ pain. COMPARISON: 05/12/2017. FINDINGS: Lung bases: The lung bases are clear. Solid organs: The liver is normal without focal lesion. The gallbladder is surgically absent. There is no biliary ductal dilation. Pancreas is normal. Spleen is normal. Adrenal glands are normal. The kidneys are normal without hydronephrosis. Bowel: The stomach and small bowel are normal without obstruction. The colon and appendix are normal. Peritoneum: There is no intraperitoneal free fluid or free air. No suspicious lymphadenopathy. Vasculature: Normal without aneurysm. Musculoskeletal: Degenerative changes of the spine without suspicious osseous lesion or compression fracture. Pelvis: The uterus is surgically absent. No adnexal mass. The urinary bladder is normal. IMPRESSION: 1. No acute abnormality in the abdomen or pelvis. Dictated by: Dictated on workstation # [id number]
[2021-02-09] MEDS ORDERED: OMEP20TA7 PO (15:56)
[2021-02-09] MEDS ORDERED: TRAM-42 PO (15:56)
[2021-02-09] MEDS ORDERED: FAMO-119 PO (15:56)
[2021-02-09 16:10] VITALS: BP 127/93
[2021-02-09] MEDS ORDERED: TRM50T PO (18:23)
== END 2021-02-09 16:10 | disposition home or self-care (01) ==
LOC: EDUNIT# 12:49 → ER 12:50
DX: R10.12 Left upper quadrant pain (principal); R11.0 Nausea; K21.9 Gastro-esophageal reflux disease without esophagitis; F41.9 Anxiety disorder, unspecified; F32.9 Major depressive disorder, single episode, unspecified; G89.29 Other chronic pain; M54.9 Dorsalgia, unspecified; E66.9 Obesity, unspecified; Z68.41 Body mass index [BMI] 40.0-44.9, adult; Z87.891 Personal history of nicotine dependence; Z79.1 Long term (current) use of non-steroidal anti-inflammatories (NSAID); Z79.891 Long term (current) use of opiate analgesic; Z90.49 Acquired absence of other specified parts of digestive tract; Z88.5 Allergy status to narcotic agent; Z79.899 Other long term (current) drug therapy
CPT/HCPCS: 36415; 74177; 80053; 81000; 83690; 85025; 86141

== ENCOUNTER 2023-04-12 00:50 | Emergency (ER) | payer SELFPAY ==
[~2023-04-12] VITALS: Ht 162.6 cm; Wt 113.4 kg
[~2023-04-12 00:50] MED LIST changes: +CYCL10TA25 PO; -DCS100C PO; +DOCU-239 PO; +FAMO-119 PO; +OMEP20TA56 PO; +TRAM-42 PO
--- NOTE | 2023-04-12 01:11 | ED Cough/URI ---
General Stated Complaint: SOB Source: patient (PT IS HOSTILE ON ARRIVAL) History of Present Illness Date Seen by Provider: Apr 12, 2023 Time Seen by Provider: 00:57 Initial Comments PT ARRIVES VIA POV FROM HOME PT STATES SHE HAS BEEN SICK FOR THE LAST 7 DAYS WITH: -PRODUCTIVE COUGH WITH CLEAR TO YELLOW SPUTUM -NASAL CONGESTION AND CLEAR DRAINAGE -HAD FEVER UP TO 103.7 FOR THE FIRST 4 DAYS, NO FEVER FOR THE LAST 3 DAYS -HEADACHE -CHEST PRESSURE--"LIKE ELEPHANT SITTING ON MY CHEST" "LIKE I HAVE PNEUMONIA" BEGAN HAVING SHORTNESS OF BREATH TODAY NO SWELLING IN LEGS/FEET NO GI SYMPTOMS NO VISION CHANGES NO BODY ACHES NO DIZZINESS HAS NOT SOUGHT CARE UNTIL TONIGHT HAS NOT TAKEN ANYTHING FOR SYMPTOMS OTHER THAN USING HER INHALER X 1 TONIGHT PT HAS HTN, HYPERLIPIDEMIA DENIES ANY HISTORY OF RESPIRATORY PROBLEMS SUCH ASTHMA/COPD, BUT HAS AN INHALER AT HOME--USED IT ONE TIME TONIGHT, NO RELIEF PT IS FORMER SMOKER PT HAS HAD COVID VACCINE X 3, NO FLU VACCINE PCP: [facility] Allergies and Home Medications Allergies Coded Allergies: Penicillins (Unverified Allergy, Mild, 09/25/20) ciprofloxacin (Unverified Allergy, Mild, 09/25/20) codeine (Unverified Allergy, Mild, 09/25/20) hydrocodone (Verified Adverse Reaction, Unknown, Itching, 09/25/20) Patient Home Medication List Home Medication List Reviewed: Yes Atorvastatin Calcium (Lipitor) 10 Mg Tablet, 10 MG PO HS, (Reported) Entered as Reported by: LILY GIORDANO on 08/23/201102 Benzonatate (Tessalon Perles) 100 Mg Capsule, 200 MG PO TID Prescribed by: MYA MONCADA on 04/12/23 0234 Cefdinir (Cefdinir) 300 Mg Capsule, 300 MG PO BID Prescribed by: MYA MONCADA on 04/12/23 023 Cetirizine HCl (Zyrtec) 10 Mg Capsule, 10 MG PO DAILY, (Reported) Entered as Reported by: BON PONCE on 09/25/20 0714 Cyclobenzaprine HCl (Cyclobenzaprine HCl) 10 Mg Tablet, 10 MG PO TID PRN for MUSCLE SPASMS, (Reported) Entered as Reported by: LILY GIORDANO on 08/23/20 1103 Docusate Sodium (Dok) 100 Mg Capsule, 100 MG PO BID PRN for CONSTIPATION-1ST LINE Prescribed by: ZEENAT HE on 09/25/20720 Duloxetine HCl (Cymbalta) 30 Mg Capsule.dr, 30 MG PO HS, (Reported) Entered as Reported by: LILY GIORDANO on 08/23/20 110 Famotidine (Pepcid) 20 Mg Tablet, 20 MG PO BID Prescribed by: SUBHASH MENEZES on 02/09/211555 Ibuprofen (Ibu) 600 Mg Tablet, 600 MG PO Q6H Prescribed by: ZEENAT HE on 09/25/20720 Methylprednisolone (Medrol) 4 Mg Tab.ds.pk, 4 MG PO UD Prescribed by: MYA MONCADA on 04/12/23233 Omeprazole (Omeprazole) 20 Mg Tablet.dr, 20 MG PO BID Prescribed by: SUBHASH MENEZES on 02/09/211555 Omeprazole Magnesium (Prilosec Otc) 20 Mg Tablet.dr, 20 MG PO for HEARTBURN, (Reported) Entered as Reported by: LILY GIORDANO on 08/23/20 110 Ondansetron HCl (Zofran) 4 Mg Tab, 4 MG PO BID PRN for NAUSEA/VOMITING, (Reported) Entered as Reported by: LILY GIORDANO on 08/23/20 110 Oxycodone HCl/Acetaminophen (Percocet 5-325 mg Tablet) 1 Each Tablet, 1-2 TAB PO Q6HR PRN for PAIN-MODERATE (5-7) Prescribed by: ZEENAT HE on 09/25/20720 Promethazine/Dextromethorphan (Promethazine-Dm Syrup) 6.25 Mg-15 Mg/5 Ml Syrup, 5 ML PO Q4H Prescribed by: MYA MONCADA on 04/12/23233 Tramadol HCl (Ultram) 50 Mg Tablet, 50 MG PO Q6H PRN for PAIN-BREAKTHROUGH Prescribed by: SUBHASH MENEZES on 02/09/211555 Tramadol HCl (Tramadol HCl) 50 Mg Tablet, 50 MG PO Q6H PRN for PAIN Prescribed by: NUPUR MONAE on 02/09/21 182 Review of Systems Review of Systems Constitutional: see HPI, fever EENTM: see HPI, nose congestion Respiratory: see HPI, cough, short of breath Cardiovascular: see HPI, chest pain Gastrointestinal: no symptoms reported Genitourinary: no symptoms reported Musculoskeletal: no symptoms reported Skin: no symptoms reported Psychiatric/Neurological: See HPI, Headache Hematologic/Lymphatic: No Symptoms Reported Immunological/Allergic: no symptoms reported Past [id number]-Nhswhs-Xhnqzi Hx Patient Social History Tobacco Use?: Yes Tobacco type used: Cigarettes Smoking Status: Former Smoker Substance use?: No Alcohol Use?: No Immunizations Up To Date Tetanus Booster (TDap): Unknown Seasonal Allergies Seasonal Allergies: Yes Past Medical History Surgeries: Yes (D&C) Appendectomy, Section, Gallbladder, Hysterectomy Respiratory: Yes Pneumonia Currently Using CPAP: No Currently Using BIPAP: No Cardiac: Yes Chronic Edema/Swelling, High Cholesterol, Hypertension Neurological: No Reproductive Disorders: Yes Female Reproductive Disorders: Menstrual Problems 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 oz. 90.958802ze; 43.00 BMI Method:Stated General Appearance: WD/WN, no apparent distress, obese HEENT: PERRL/EOMI, TMs normal, pharynx normal, other (NASAL CONGESTION, CLEAR POST NASAL DRAINAGE) Respiratory: normal breath sounds, no respiratory distress, no accessory muscle use Cardiovascular: normal peripheral pulses, regular rate, rhythm, no edema, no JVD, no murmur Gastrointestinal: non tender, soft Extremities: normal inspection, no pedal edema, no calf tenderness, normal capillary refill Neurologic/Psychiatric: shank inspector II-XII nml as tested, no motor/sensory deficits, alert, oriented x 3 Skin: normal color, warm/dry Progress/Results/Core Measures Suspected Sepsis SIRS Temperature: Pulse: Respiratory Rate: Laboratory Tests 04/12/23 01:45: White Blood Count 5.2 Blood Pressure / Mean: Laboratory Tests 04/12/23 01:45: Creatinine 0.83, INR Comment 1.0, Platelet Count 292, Total Bilirubin 0.2 Results/Orders Lab Results Laboratory Tests Test 04/12/23 01:30 04/12/23 01:45 Range/Units Urine Color YELLOW Urine Clarity CLEAR Urine pH 6.5 5-9 Urine Specific [place] 1.010 L 1.016-1.022 Urine Protein NEGATIVE NEGATIVE Urine Glucose (UA) NEGATIVE NEGATIVE Urine Ketones NEGATIVE NEGATIVE Urine Nitrite NEGATIVE NEGATIVE Urine Bilirubin NEGATIVE NEGATIVE Urine Urobilinogen 0.2 < = 1.0 MG/DL Urine Leukocyte Esterase NEGATIVE NEGATIVE Urine RBC (Auto) NEGATIVE NEGATIVE Urine RBC NONE /HPF Urine WBC NONE /HPF Urine Squamous Epithelial Cells RARE /HPF Urine Crystals NONE /LPF Urine Bacteria NEGATIVE /HPF Urine Casts NONE /LPF Urine Mucus NEGATIVE /LPF Urine Culture Indicated NO White Blood Count 5.2 4.3-11.0 10^3/uL Red Blood Count 3.99 3.80-5.11 10^6/uL Hemoglobin 11.8 11.5-16.0 g/dL Hematocrit 36 35-52 % Mean Corpuscular Volume 90 80-99 fL Mean Corpuscular Hemoglobin 30 25-34 pg Mean Corpuscular Hemoglobin Concent 33 32-36 g/dL Red Cell Distribution Width 13.0 10.0-14.5 % Platelet Count 292 130-400 10^3/uL Mean Platelet Volume 9.7 9.0-12.2 fL Immature Granulocyte % (Auto) 0 % Neutrophils (%) (Auto) 51 42-75 % Lymphocytes (%) (Auto) 39 12-44 % Monocytes (%) (Auto) 8 0-12 % Eosinophils (%) (Auto) 2 0-10 % Basophils (%) (Auto) 0 0-10 % Neutrophils # (Auto) 2.6 1.8-7.8 10^3/uL Lymphocytes # (Auto) 2.0 1.0-4.0 10^3/uL Monocytes # (Auto) 0.4 0.0-1.0 10^3/uL Eosinophils # (Auto) 0.1 0.0-0.3 10^3/uL Basophils # (Auto) 0.0 0.0-0.1 10^3/uL Immature Granulocyte # (Auto) 0.0 0.0-0.1 10^3/uL Erythrocyte Sedimentation Rate 26 0-30 MM/HR Prothrombin Time 13.0 12.2-14.7 SEC INR Comment 1.0 0.8-1.4 Activated Partial Thromboplast Time 26 24-35 SEC D-Dimer 0.32 0.00-0.49 UG/ML Sodium Level 139 135-145 MMOL/L Potassium Level 4.0 3.6-5.0 MMOL/L Chloride Level 103 98-107 MMOL/L Carbon Dioxide Level 25 21-32 MMOL/L Anion Gap 11 5-14 MMOL/L Blood Urea Nitrogen 11 7-18 MG/DL Creatinine 0.83 0.60-1.30 MG/DL Estimat Glomerular Filtration Rate 86 BUN/Creatinine Ratio 13 Glucose Level 96 70-105 MG/DL Calcium Level 9.2 8.5-10.1 MG/DL Corrected Calcium 9.2 8.5-10.1 MG/DL Magnesium Level 2.0 1.6-2.4 MG/DL Total Bilirubin 0.2 0.1-1.0 MG/DL Aspartate Amino Transf (AST/SGOT) 22 5-34 U/L Alanine Aminotransferase (ALT/SGPT) 26 0-55 U/L Alkaline Phosphatase 95 40-136 U/L Total Creatine Kinase 88 29-168 U/L Creatine Kinase MB 1.1 <6.6 NG/ML Myoglobin 34.9 10.0-92.0 NG/ML Troponin I < 0.028 <0.028 NG/ML C-Reactive Protein High Sensitivity 0.53 H 0.00-0.50 MG/DL B-Type Natriuretic Peptide 18.0 <100.0 PG/ML Total Protein 7.3 6.4-8.2 GM/DL Albumin 4.0 3.2-4.5 GM/DL My Orders Orders - MYA MONCADA DO Ed Iv/Invasive Line Start (04/12/23 00:57) Ekg Tracing (04/12/23 00:57) O2 (04/12/23 00:57) Monitor-Rhythm Ecg Trace Only (04/12/23 00:57) Chest 1 View, Ap/Pa Only (04/12/23 00:57) Bnp [place] (04/12/23 00:57) Cbc And Automated Diff (04/12/23 00:57) Comprehensive Metabolic Panel (04/12/23 00:57) Creatine Kinase (04/12/23 00:57) Creatine Kinase Mb (04/12/23 00:57) Hs C Reactive Protein (04/12/23 00:57) Fibrin Degradation Products (04/12/23 00:57) Magnesium (04/12/23 00:57) Protime With Inr (04/12/23 00:57) Partial Thromboplastin Time (04/12/23 00:57) Ua Culture If Indicated (04/12/23 00:57) Erythrocyte Sedimentation Rate (04/12/23 00:57) Myoglobin Serum (04/12/23 00:57) Troponin I Juan (04/12/23 00:57) Covid 19 Inhouse Test (04/12/23 00:57) Influenza A And B By Pcr (04/12/23 00:57) Ketorolac Injection (Ketorolac Injection (04/12/23 01:15) Ceftriaxone Iv/Im (Ceftriaxone Iv/Im) (04/12/23 02:00) Methylprednisolone Sod Succ (Methylpredn (04/12/23 02:00) Medications Given in ED Vital Signs/I&O 04/12/23 04/12/23 01:00 03:00 Temp 36.8 36.8 Pulse 86 77 Resp 16 16 B/P (MAP) 185/101 (129) 126/75 Pulse Ox 98 95 O2 Delivery Room Air Room Air Capillary Refill : Progress Note : Progress Note VITALS ON ARRIVAL: TEMP 36.8, HR 77, RR 16, BP 126/75, O2 SAT 98% ON ROOM AIR REFUSES COVID AND FLU SWABS STATES SHE JUST WANTS SOMETHING FOR HER HEADACHE GIVEN: -TORADOL -ROCEPHIN -SOLU-MEDROL LABS: -CBC NORMAL WITH WBC 5.2 -CMP NORMAL -TROPONIN NEGATIVE -BNP NORMAL -MG NORMAL -PT/PTT/INR NORMAL -D-DIMER NEGATIVE -SED RATE 26, CRP 0.53 -UA CLEAR EKG IS UNREMARKABLE CXR IS UNREMARKABLE, PENDING RADIOLOGIST REVIEW NO DETERIORATION IN PT'S CONDITION DURING ER STAY NO COUGH NO DYSPNEA NO HYPOXIA NO FURTHER C/O CHEST PAIN FOR REMAINDER OF ER STAY SPACER SENT HOME WITH PT AND INSTRUCTED ON USE DISCUSSED TEST RESULTS, ANTICIPATED COURSE, SYMPTOMATIC TREATMENT, MEDICATIONS, NEED FOR FOLLOW UP AND RETURN PRECAUTIONS REVIEWED PRIOR RECORDS INCLUDING ER VISITS, ADMITS/H&P'S/CONSULTS/DISCHARGE SUMMARIES, TESTS/PROCEDURES ECG Initial ECG Impression Date: Apr 12, 2023 Initial ECG Impression Time: 01:26 Initial ECG Rate: 76 Initial ECG Rhythm: Normal Sinus Initial ECG Intervals: Normal Initial ECG Impression: Normal Initial ECG Comparisson: Unchanged Comment INTERPRETED BY ME Diagnostic Imaging Comments CXR--NO ACUTE PROCESS, PENDING RADIOLOGIST REVIEW Reviewed: Reviewed by Me Departure Impression Primary Impression: Acute bronchitis Disposition: HOME, SELF-CARE Condition: Stable Departure-Patient Inst. Decision time for Depature: 02:30 Referrals: [facility] (PCP/Family) Primary Care Physician Patient Instructions: Bronchitis, Adult ED, How to Use a Metered Dose Inhaler ED Add. Discharge Instructions: LOTS OF CLEAR LIQUIDS TYLENOL AND MOTRIN FOR PAIN OR FEVER USE YOUR INHALER WITH SPACER--2 PUFFS EVERY 4 HOURS NEEDED FOLLOW UP WITH [facility] IN 3-4 DAYS FOR FURTHER CARE, RETURN TO ER IF SYMPTOMS WORSEN Scripts Promethazine/Dextromethorphan (Promethazine-Dm Syrup) 6.25 Mg-15 Mg/5 Ml Syrup 5 ML PO Q4H for Cough, #200 ML Prov: MYA MONCADA DO 04/12/23 Benzonatate (TESSALON PERLES) 100 Mg Capsule 200 MG PO TID, #30 CAP Prov: MYA MONCADA DO 04/12/23 Methylprednisolone (Medrol) 4 Mg Tab.ds.pk 4 MG PO UD for 6 Days, #21 PKG PER DOSE PACK INSTRUCTIONS Prov: MYA MONCADA DO 04/12/23 Cefdinir (Cefdinir) 300 Mg Capsule 300 MG PO BID, #20 CAP Prov: MYA MONCADA DO 04/12/23 MYA MONCADA DO Apr 12, 2023 01:11
[2023-04-12] MEDS ORDERED: KETOROLAC INJ 30 MG/ML VIAL IVP ONE (01:15)
[2023-04-12 01:58] LABS: BASOPHILS % (AUTO) 0 % (0-10); EOSINOPHILS # (AUTO) 0.1 10^3/uL (0.0-0.3); EOSINOPHILS % (AUTO) 2 % (0-10); HEMATOCRIT 36 % (35-52); HEMOGLOBIN 11.8 g/dL (11.5-16.0); LYMPHOCYTES % (AUTO) 39 % (12-44); MEAN CORPUSCULAR HEMOGLOBIN 30 pg (25-34); MEAN CORPUSCULAR HGB CONC 33 g/dL (32-36); MEAN CORPUSCULAR VOLUME 90 fL (80-99); MEAN PLATELET VOLUME 9.7 fL (9.0-12.2); MONOCYTES # (AUTO) 0.4 10^3/uL (0.0-1.0); MONOCYTES % (AUTO) 8 % (0-12); NEUTROPHILS # (AUTO) 2.6 10^3/uL (1.8-7.8); NEUTROPHILS % (AUTO) 51 % (42-75); PLATELET COUNT 292 10^3/uL (130-400); WHITE BLOOD COUNT 5.2 10^3/uL (4.3-11.0)
[2023-04-12] MEDS ORDERED: cefTRIAXone IV/IM 1,000 MG in NS (IVPB) 50 ML 50 ML IV ONE (02:00)
[2023-04-12] MEDS ORDERED: methylPREDNISolone INJ 125 MG VIAL IVP ONE (02:00)
[2023-04-12 02:01] LABS: CLARITY,URINE CLEAR; COLOR,URINE YELLOW; PH,URINE 6.5 (5-9)
[2023-04-12 02:02] LABS: BACTERIA,URINE NEGATIVE /HPF; BILIRUBIN,URINE NEGATIVE (NEGATIVE); GLUCOSE, URINE (UA) NEGATIVE (NEGATIVE); KETONES,URINE NEGATIVE (NEGATIVE); LEUKOCYTE ESTERASE ,URINE NEGATIVE (NEGATIVE); NITRITE,URINE NEGATIVE (NEGATIVE); PROTEIN,URINE NEGATIVE (NEGATIVE); SQUAMOUS EPITHELIAL CELL,UR RARE /HPF
[2023-04-12 02:11] LABS: CHLORIDE 103 MMOL/L (98-107); SODIUM 139 MMOL/L (135-145)
[2023-04-12 02:12] LABS: CALCIUM 9.2 MG/DL (8.5-10.1)
[2023-04-12 02:13] LABS: GLUCOSE 96 MG/DL (70-105)
[2023-04-12 02:14] LABS: FIBRIN DEGRADATION PRODUCTS 0.32 UG/ML (0.00-0.49); TOTAL PROTEIN 7.3 GM/DL (6.4-8.2)
[2023-04-12 02:15] LABS: BILIRUBIN,TOTAL 0.2 MG/DL (0.1-1.0); CARBON DIOXIDE 25 MMOL/L (21-32)
[2023-04-12 02:17] LABS: ALKALINE PHOSPHATASE 95 U/L (40-136); CREATININE SERUM 0.83 MG/DL (0.60-1.30); ERYTHROCYTE SEDIMENTATION RATE 26 MM/HR (0-30); GFR ESTIMATED 86
[2023-04-12 02:18] LABS: BUN/CREATININE RATIO 13
[2023-04-12 02:20] LABS: ALANINE AMINOTRANSFERASE 26 U/L (0-55)
[2023-04-12 02:21] LABS: CREATINE KINASE 88 U/L (29-168)
[2023-04-12 02:27] LABS: CREATINE KINASE MB 1.1 NG/ML (<6.6)
[2023-04-12] MEDS ORDERED: CEFD300C3 PO ×2 (02:31→02:34)
[2023-04-12] MEDS ORDERED: PROM473S15 PO ×2 (02:31→02:34)
[2023-04-12] MEDS ORDERED: BENZ100C18 PO ×2 (02:31→02:34)
[2023-04-12] MEDS ORDERED: METH4TAB PO ×2 (02:31→02:34)
[2023-04-12 03:00] VITALS: BP 126/75
--- NOTE | 2023-04-12 07:32 | Diagnostic Imaging Report ---
PATIENT HISTORY: DYSPNEA. TECHNIQUE: Single frontal view of the chest. COMPARISON: 05/07/2014 FINDINGS: The lung volumes are normal. No focal consolidation is seen. Haziness over the lung bases is due to overlying soft tissue. No large pleural effusion or pneumothorax is seen. The cardiomediastinal silhouette is normal in size and contour. No acute osseous abnormality is seen. IMPRESSION: No acute pulmonary abnormality seen. Dictated by: Dictated on workstation # [id number]
== END 2023-04-12 03:00 | disposition home or self-care (01) ==
LOC: EDUNIT# 00:50 → ER 00:53
DX: J20.9 Acute bronchitis, unspecified (principal); E66.9 Obesity, unspecified; Z68.41 Body mass index [BMI] 40.0-44.9, adult; Z87.891 Personal history of nicotine dependence; Z88.0 Allergy status to penicillin; Z88.1 Allergy status to other antibiotic agents
CPT/HCPCS: 36415; 71045; 80053; 81000; 82550; 82553; 83735; 83874; 83880; 84484; 85025; 85379; 85610; 85652; 85730; 86141; 93005; 96374; 96375